=== PATIENT | female | born 1955 | race Caucasian/White ===

== ENCOUNTER 2022-07-02 15:11 | Inpatient (IN) ==
[2022-07-02] MEDS ORDERED: SODIUM CHLORIDE 0.9% 1000ML 500 ML IV ONE (15:43)
[2022-07-02 16:45] LABS: Basophils # (auto) 0.04 K/uL (0-0.2); Basophils % (auto) 0.4 %; Eosinophils # (auto) 0.04 K/uL (0-0.50); Eosinophils % (auto) 0.4 %; Hematocrit (blood only) 39.7 % (34.1-44.9); Hemoglobin 14.2 g/dl (12.0-16.0); Immature Granulocytes # (auto) 0.03 K/uL (0.00-0.02); Immature Granulocytes % (auto) 0.3 %; Lymphocytes # (auto) 1.83 K/uL (1.2-3.4); Lymphocytes % (auto) 17.1 %; Mean Corpuscular Hemoglobin 31.8 pg (25.0-34.0); Mean Corpuscular Hgb Conc 35.8 g/dL (32.0-36.0); Mean Platelet Volume 10.3 fL (9.4-12.3); Monocytes # (auto) 1.01 K/uL (0.24-0.82); Monocytes % (auto) 9.4 %; Neutrophils # (auto) 7.75 K/uL (1.4-6.5); Neutrophils % (auto) 72.4 %; Platelet Count 227 K/uL (130-400); RDW Coefficient of Variation 12.2 % (11.5-14.5); RDW Standard Deviation 39.9 fL (36.4-46.3); Red Blood Count 4.46 M/uL (3.93-5.22)
--- NOTE | 2022-07-02 16:47 | Emergency Department Note ---
History of Present Illness General Chief complaint: Diarrhea Stated complaint: DIARRHEA,VOMITING,ABD PAIN Time Seen by Provider: 07/02/22 15:37 History of Present Illness Provider Complaint: + nausea, + vomiting and + diarrhea Onset (ago): day(s) 4 Description of Vomiting: no bilious, no bloody or no coffee grounds Description of Diarrhea: no mucousy, no tarry, no blood-streaked or no bloody (bright red) Associated Abdominal Pain: Yes Location of pain: + diffuse Severity: moderate Maximum Pain Intensity: 5 Current Pain Intensity: 5 Quality: + aching Pain Consistency: + intermittent Relieved By: + none Exacerbated By: + none Context: + recent surgery/procedure (Colonoscopy on Sunday); no recent antibiotic use, no alcohol abuse, no trauma, no smoking or no marijuana use Associated symptoms: + anxiety (2Patient states she has been under a great deal of stress her sister having dementia and getting to arguments with caregivers within the family about this.); no chest pain, no cough, no fever/chills, no headaches, no dysuria, no shortness of breath, no numbness or no palpitation Home Medications Medication Instructions Recorded Confirmed Type amlodipine 5 mg tablet 5 mg PO DAILY 07/02/22 07/02/22 History aspirin 81 mg tablet,delayed 81 mg PO DAILY 07/02/22 07/02/22 History release cholecalciferol (vitamin D3) 50 50 mcg PO DAILY 07/02/22 07/02/22 History mcg (2,000 unit) tablet (Vitamin D3) indapamide 2.5 mg tablet 2.5 mg PO DAILY 07/02/22 07/02/22 History losartan 100 mg tablet 100 mg PO DAILY 07/02/22 07/02/22 History metformin 500 mg tablet,extended 1,000 mg PO BID 07/02/22 07/02/22 History release 24 hr pantoprazole 40 mg tablet,delayed 40 mg PO DAILYBB 07/02/22 07/02/22 History release rosuvastatin 20 mg tablet 20 mg PO HS 07/02/22 07/02/22 History solifenacin 10 mg tablet 10 mg PO QAM 07/02/22 07/02/22 History Allergies Allergy/AdvReac Type Severity Reaction Status Date / Time lisinopril Allergy Mild VOMITING, Unverified 07/02/22 20:56 COUGH oxycodone Allergy Mild VOMITING Unverified 07/25/10 21:26 atorvastatin [From Lipitor] AdvReac Unknown leg cramps Verified 07/02/22 20:56 olmesartan [From Benicar] AdvReac Unknown Diarrhea Verified 07/02/22 20:56 Past Med/Surg History Medical History Diabetes HLD (hyperlipidemia) HTN (hypertension) No pertinent family history Surgical History Hx of tonsillectomy Social History Smoking Status: Former smoker Preferred Language: Malian Feels Safe at Home: Yes Physical Exam Vital Signs: Vital Signs - 24 hr 07/02/22 15:26 07/02/22 16:19 07/02/22 17:30 Temperature 36.5 C Temperature Source Temporal Artery Sc an Pulse Rate 78 Pulse Rate [Finger ] 66 Pulse Rhythm Regular Pulse Rhythm [Fing er] Pulse Strength Normal Pulse Strength [Fi nger] Respiratory Rate 20 20 Respiratory Effort / Characteristics Non-Labored Sponta neous Non-Labored Sponta neous Respiratory Depth Normal Normal Respiratory Patter n Regular Regular Blood Pressure 148/88 H Blood Pressure [Ri ght Arm] 91/52 L Blood Pressure Darling n 108 Blood Pressure Darling n [Right Arm] 65 Blood Pressure Pos ition Sitting Blood Pressure Pos ition [Right Arm] Sitting Pulse Oximetry 97 99 Oxygen Delivery Me thod Room Air Room Air Room Air Sepsis Recent Feve r Within 48 Hours No Sepsis New/Unexpla ined Change in Men norris Status No Sepsis Action Take n by Nursing No Action Required 07/02/22 19:11 07/02/22 21:00 Temperature 36.7 C Temperature Source Oral Pulse Rate Pulse Rate [Finger ] 73 66 Pulse Rhythm Pulse Rhythm [Fing er] Regular Regular Pulse Strength Pulse Strength [Fi nger] Normal Normal Respiratory Rate 16 18 Respiratory Effort / Characteristics Non-Labored Sponta neous Non-Labored Sponta neous Respiratory Depth Normal Normal Respiratory Patter n Blood Pressure Blood Pressure [Ri ght Arm] 134/78 134/84 Blood Pressure Darling n Blood Pressure Darling n [Right Arm] 96 100 Blood Pressure Pos ition Blood Pressure Pos ition [Right Arm] Pulse Oximetry 98 97 Oxygen Delivery Me thod Room Air Room Air Sepsis Recent Feve r Within 48 Hours Sepsis New/Unexpla ined Change in Men norris Status Sepsis Action Take n by Nursing Physical Exam: Physical Exam HENT: Exam performed. -Head: Normocephalic and atraumatic. -Right Ear: External ear normal. No mastoid tenderness. -Left Ear: External ear normal. No mastoid tenderness. -Mouth/Throat: The oropharynx is clear and moist. No trismus in the jaw. No dental abscesses or uvula swelling. No oropharyngeal exudate or tonsillar abscesses. EYES: Conjunctivae and EOM are normal. Pupils are equal, round, and reactive to light. Right eye exhibits no discharge. Left eye exhibits no discharge. No scleral icterus. NECK: Normal range of motion. Neck supple. No JVD present. No spinous process tenderness present. No carotid bruit present. No rigidity. No tracheal deviation and normal range of motion present. No Brudzinski's sign and no Kernig's sign noted. CV: Normal rate, regular rhythm, normal heart sounds and intact distal pulses. There is no peripheral edema. Palpable radial pulses bue. PULM/CHEST: Effort normal and breath sounds normal. No respiratory distress. No stridor. She has no wheezes. She has no rales. -Chest Wall: She exhibits no tenderness. ABD: The abdomen is soft. Bowel sounds are normal. She has no distension. No mass is present. There is no tenderness. There is no rebound, no guarding, no Reynolds's sign and no tenderness at McBurney's point. Rovsig negative MUSC/SKEL: Normal range of motion. There is no peripheral edema, tenderness or deformity. LYMPH: No cervical adenopathy. NEURO: She is alert and oriented to person, place, and time. She has normal strength. No cranial nerve deficit or sensory deficit. Coordination and gait normal. GCS eye subscore is 4. GCS verbal subscore is 5. GCS motor subscore is 6. Cerebellar tests wnl. SKIN: Skin is warm and dry. She is not diaphoretic. PSYCH: Patient appears very anxious appearing tearing up when talking about her sister. Patient denies any suicidal or homicidal ideation. Course Course 153: The patient was evaluated in room B12. A complete history and physical exam was performed Cardiac monitoring: An order was placed for continuous cardiac monitoring. The monitor shows a rate of 80 with sinus rhythm 1645: Farrukh architect manager was able to access the patient's records in the [facility] EMR online. The patient had stool studies done on May 30 which were negative for C. difficile Giardia and Cryptosporidium. The patient had an ultrasound done on June 01 which showed a single intraluminal calculus in the gallbladder approximately 2.9 cm in diameter which is unchanged from March 2015. There is no ultrasound evidence of acute cholecystitis. No extrahepatic biliary dilatation with common duct measuring 7 mm. The patient had a colonoscopy done [address] Garcia which showed two 16mm polyps in the descending colon which were removed and was otherwise negative. 1699: Vital signs stable. Patient's labs show creatinine of 3.76.The labs from May 23 [facility] and the patient had a creatinine of 0.9. Given this CT of the abdomen was ordered to rule out any obstruction. CT of the abdomen pelvis showed no kidney stones but did show a possibly elevated diameter of the patient's appendix. The patient is still having pain in her right side. We will obtain CT of the abdomen pelvis with oral contrast. 2115: Vital signs stable. CT of the abdomen and pelvis does not show appendicitis. Patient be admitted to the [facility] hospitalist team Dr. Pugh for MARYLU. Administered Medications Sodium Chloride (Nss 1000ml) 1,000 mls @ 125 mls/hr IV .Q8H SANKET Stop: 08/01/22 17:59 Last Admin: 07/02/22 18:03 Dose: 125 mls/hr Documented By: ROBERTA Discontinued Medications Sodium Chloride (Nss 1000ml) 500 mls @ 999 mls/hr IV .Q31M ONE Stop: 07/02/22 16:13 Last Infusion: 07/02/22 17:42 Dose: 0 mls/hr Documented By: Admin: 07/02/22 16:30 Dose: 999 mls/hr Documented By: ROBERTA Medical Decision Making Laboratory Data Result diagrams: 07/02/22 16:35 07/02/22 16:35 Lab Results 07/02/22 07/02/22 07/02/22 Range/Units 16:35 16:35 17:49 WBC 10.70 (4.8-10.8) K/ul RBC 4.46 (3.93-5.22) M/uL Hgb 14.2 (12.0-16.0) g/dl Hct 39.7 (34.1-44.9) % MCV 89.0 (80.0-100.0) fL MCH 31.8 (25.0-34.0) pg MCHC 35.8 (32.0-36.0) g/dL RDW Std Deviation 39.9 (36.4-46.3) fL RDW Coeff of Misael 12.2 (11.5-14.5) % Plt Count 227 (130-400) K/uL MPV 10.3 (9.4-12.3) fL Immature Gran % (Auto) 0.3 % Neut % (Auto) 72.4 % Lymph % (Auto) 17.1 % [place] % (Auto) 9.4 % Eos % (Auto) 0.4 % Baso % (Auto) 0.4 % Neut # (Auto) 7.75 H (1.4-6.5) K/uL Lymph # (Auto) 1.83 (1.2-3.4) K/uL [place] # (Auto) 1.01 H (0.24-0.82) K/uL Eos # (Auto) 0.04 (0-0.50) K/uL Baso # (Auto) 0.04 (0-0.2) K/uL Immature Gran # (Auto) 0.03 H (0.00-0.02) K/uL Sodium 135 L (136-145) mmol/L Potassium 3.3 L (3.5-5.1) mmol/L Chloride 98 (98-107) mmol/L Carbon Dioxide 24 (21-32) mmol/L Anion Gap 13 H (3-11) BUN 34 H (6-23) mg/dl Creatinine 3.76 H (0.6-1.2) mg/dl Est Cr Clr Drug Dosing 13.9 ml/min Est GFR ( Amer) 13.6 ml/min Est GFR (Non-Af Amer) 11.7 ml/min BUN/Creatinine Ratio 9.0 L (10-20) Glucose 102 H (70-99(Fasting)) mg/dl Calcium 9.6 (8.5-10.1) mg/dl Total Bilirubin 2.2 H (0.2-1.0) mg/dl Direct Bilirubin 0.2 (0-0.2) mg/dl AST 19 (13-39) U/L ALT 29 (7-52) U/L Alkaline Phosphatase 45 (34-104) U/L Total Protein 7.4 (6.0-8.3) gm/dl Albumin 4.1 (3.4-5.0) gm/dl Lipase 8 L (11-82) U/L Urine Color Yellow Urine Appearance Clear (Clear) Urine pH 5.0 (4.5-7.5) Ur Specific [place] 1.005 (1.000-1.030) Urine Protein Negative (Negative) Urine Glucose (UA) Negative (Negative) Urine Ketones Negative (Negative) Urine Blood 1+ H (Negative) Urine Nitrite Negative (Negative) Urine Bilirubin Negative (Negative) Urine Urobilinogen Negative (Negative) Ur Leukocyte Esterase Negative (Negative) Urine WBC (Auto) 1-5 (0-5) /hpf Urine RBC (Auto) 0-4 (0-4) /hpf U Hyaline Cast (Auto) 1-5 (0-5) /lpf U Epithel Cells (Auto) 20-30 H (0-5) /lpf Urine Bacteria (Auto) Negative (Negative) SARS-CoV-2, RNA, NAAT (NEGATIVE) 07/02/22 Range/Units 18:10 WBC (4.8-10.8) K/ul RBC (3.93-5.22) M/uL Hgb (12.0-16.0) g/dl Hct (34.1-44.9) % MCV (80.0-100.0) fL MCH (25.0-34.0) pg MCHC (32.0-36.0) g/dL RDW Std Deviation (36.4-46.3) fL RDW Coeff of Misael (11.5-14.5) % Plt Count (130-400) K/uL MPV (9.4-12.3) fL Immature Gran % (Auto) % Neut % (Auto) % Lymph % (Auto) % [place] % (Auto) % Eos % (Auto) % Baso % (Auto) % Neut # (Auto) (1.4-6.5) K/uL Lymph # (Auto) (1.2-3.4) K/uL [place] # (Auto) (0.24-0.82) K/uL Eos # (Auto) (0-0.50) K/uL Baso # (Auto) (0-0.2) K/uL Immature Gran # (Auto) (0.00-0.02) K/uL Sodium (136-145) mmol/L Potassium (3.5-5.1) mmol/L Chloride (98-107) mmol/L Carbon Dioxide (21-32) mmol/L Anion Gap (3-11) BUN (6-23) mg/dl Creatinine (0.6-1.2) mg/dl Est Cr Clr Drug Dosing ml/min Est GFR ( Amer) ml/min Est GFR (Non-Af Amer) ml/min BUN/Creatinine Ratio (10-20) Glucose (70-99(Fasting)) mg/dl Calcium (8.5-10.1) mg/dl Total Bilirubin (0.2-1.0) mg/dl Direct Bilirubin (0-0.2) mg/dl AST (13-39) U/L ALT (7-52) U/L Alkaline Phosphatase (34-104) U/L Total Protein (6.0-8.3) gm/dl Albumin (3.4-5.0) gm/dl Lipase (11-82) U/L Urine Color Urine Appearance (Clear) Urine pH (4.5-7.5) Ur Specific [place] (1.000-1.030) Urine Protein (Negative) Urine Glucose (UA) (Negative) Urine Ketones (Negative) Urine Blood (Negative) Urine Nitrite (Negative) Urine Bilirubin (Negative) Urine Urobilinogen (Negative) Ur Leukocyte Esterase (Negative) Urine WBC (Auto) (0-5) /hpf Urine RBC (Auto) (0-4) /hpf U Hyaline Cast (Auto) (0-5) /lpf U Epithel Cells (Auto) (0-5) /lpf Urine Bacteria (Auto) (Negative) SARS-CoV-2, RNA, NAAT NEGATIVE (NEGATIVE) Imaging Data Radiologist's Impression: Abdomen/Pelvis CT 07/02/22 17:09 CT OF THE ABDOMEN AND PELVIS WITHOUT CONTRAST CLINICAL HISTORY: Abdominal pain. Acute kidney injury. COMPARISON STUDY: No previous studies for comparison. TECHNIQUE: Axial images of the abdomen and pelvis were obtained without IV contrast. Images were reviewed in the axial, sagittal, and coronal planes. Automated exposure control was utilized for the study. A dose lowering techniq ue was utilized adhering to the principles of ALARA. FINDINGS: Lung bases are unremarkable. No pneumatosis, free air or portal venous gas is present. No renal, ureteral or bladder calculi are present. There is minimal symmetric bilateral perinephric stranding. There is no hydronephrosis. A few 4.4 cm water attenuation lesion within the midpole of the left kidney favors a cyst. An additional 1.3 cm water attenuation lesion is also suboptimally assessed but likely reflects a cyst. Gallstone within the gallbladder is noted. No evidence for acute cholecystitis. Unenhanced images of the liver, spleen, adrenal glands and pancreas are unremarkable. There is no evidence for a bowel obstruction. The appendix is slightly dilated, measuring 7 mm in caliber. There is no definite periappendiceal infiltration. Suspected right fundal fibroid measuring approximately 2 cm. There is no ascites. There is no lymphadenopathy. No acute fracture or suspicious lesion within visualized skeletal structures. IMPRESSION: 1. No urinary calculi or hydronephrosis. Minimal symmetric bilateral perinephric stranding. 2. Slightly dilated appendix. These findings do not strongly suggest acute appendicitis however correlation with right lower quadrant pain is recommended. If progressive pain, short-term follow-up CT is recommended. 3. Cholelithiasis. No evidence for acute cholecystitis. 4. No bowel obstruction. ACT 112: Negative or not required by law. Electronically signed by: Jose David Celestin M.D. 07/02/2022 5:46 PM PreliminaryFindingsOnly See Final Report For Complete Findings CT ABDOMEN & PELVIS With Contrast: The appendix is normal. Bowel loops are nondilated. No pneumoperitoneum, free fluid, or acute inflammatorychanges are seen involving the bowel. There is a 2.6 cmcalcified gallstoneswithin a nondilated gallbladder. No surrounding inflammation is identified. No biliaryduct dilation or choledocholithiasis is seen. There is a 4.6 cmsimple cyst in the upper pole the left kidney. No hydronephrosis or ureterolithiasis is seen. The liver, pancreas, spleen, and adrenal glands are unremarkable. The aorta is mildlycalcified but nondilated. The uterus, adnexa, urinarybladder appear within normal limits. Mild degenerative changes throughout the lumbar spine. No acute fracture or subluxation is seen. Radiologist: Harley Marks MD Study ready at 20:22 and initial results transmitted at 21:00 [facility] Narrative 1537: The patient was evaluated in room B12. A complete history and physical exam was performed Cardiac monitoring: An order was placed for continuous cardiac monitoring. The monitor shows a rate of 80 with sinus rhythm 1645: Farrukh architect manager was able to access the patient's records in the [facility] EMR online. The patient had stool studies done on May 30 which were negative for C. difficile Giardia and Cryptosporidium. The patient had an ultrasound done on June 01 which showed a single intraluminal calculus in the gallbladder approximately 2.9 cm in diameter which is unchanged from March 2015. There is no ultrasound evidence of acute cholecystitis. No extrahepatic biliary dilatation with common duct measuring 7 mm. The patient had a colonoscopy done [address] Garcia which showed two 16mm polyps in the descending colon which were removed and was otherwise negative. 1699: Vital signs stable. Patient's labs show creatinine of 3.76.The labs from May 23 were reviewed in the [facility] system and the patient had a creatinine of 0.9. Given this CT of the abdomen was ordered to rule out any obstruction. CT of the abdomen pelvis showed no kidney stones but did show a possibly elevated diameter of the patient's appendix. The patient is still having pain in her right side. We will obtain CT of the abdomen pelvis with oral contrast. 2115: Vital signs stable. CT of the abdomen and pelvis does not show appendicitis. Patient be admitted to the [facility] hospitalist team Dr. Pugh for MARYLU. Impression & Plan MARYLU (acute kidney injury) Discharge Plan Visit Data Chief Complaint: Diarrhea Stated Complaint: DIARRHEA,VOMITING,ABD PAIN ED Provider: Dinesh Charles Discharge Problem: MARYLU (acute kidney injury) Patient Disposition: Admitted As Inpatient Forms Stand Alone Forms: [facility] Prescriptions Prescriptions: No Action amlodipine 5 mg tablet 5 mg PO DAILY pantoprazole 40 mg tablet,delayed release (DR/EC) 40 mg PO DAILYBB losartan 100 mg tablet 100 mg PO DAILY metformin 500 mg tablet extended release 24 hr 1,000 mg PO BID rosuvastatin 20 mg tablet 20 mg PO HS solifenacin 10 mg tablet 10 mg PO QAM indapamide 2.5 mg tablet 2.5 mg PO DAILY aspirin [Aspirin Low-Strength] 81 mg Tablet,Delayed Release (Dr/Ec) 81 mg PO DAILY cholecalciferol (vitamin D3) [Vitamin D3] 50 mcg (2,000 unit) Tablet 50 mcg PO DAILY Referrals Referrals: Doroteo Hammond MD [Primary Care Provider] -
[2022-07-02 17:04] LABS: Albumin Level 4.1 gm/dl (3.4-5.0); Bilirubin Direct 0.2 mg/dl (0-0.2); Bilirubin,Total 2.2 mg/dl (0.2-1.0); Calcium 9.6 mg/dl (8.5-10.1); Creatinine Clr Calc Pharmacy 13.9 ml/min; Est GFR (African American) 13.6 ml/min; Est GFR (Non-African American) 11.7 ml/min; Potassium 3.3 mmol/L (3.5-5.1); Total Protein 7.4 gm/dl (6.0-8.3)
--- NOTE | 2022-07-02 17:48 | CT Scan Report ---
CT OF THE ABDOMEN AND PELVIS WITHOUT CONTRAST CLINICAL HISTORY: Abdominal pain. Acute kidney injury. COMPARISON STUDY: No previous studies for comparison. TECHNIQUE: Axial images of the abdomen and pelvis were obtained without IV contrast. Images were revi ewed in the axial, sagittal, and coronal planes. Automated exposure control was utilized for the emmy dy. A dose lowering technique was utilized adhering to the principles of ALARA. FINDINGS: Lung bases are unremarkable. No pneumatosis, free air or portal venous gas is present. No r enal, ureteral or bladder calculi are present. There is minimal symmetric bilateral perinephric stran ding. There is no hydronephrosis. A few 4.4 cm water attenuation lesion within the midpole of the lef t kidney favors a cyst. An additional 1.3 cm water attenuation lesion is also suboptimally assessed b ut likely reflects a cyst. Gallstone within the gallbladder is noted. No evidence for acute cholecyst itis. Unenhanced images of the liver, spleen, adrenal glands and pancreas are unremarkable. There is no evidence for a bowel obstruction. The appendix is slightly dilated, measuring 7 mm in caliber. The re is no definite periappendiceal infiltration. Suspected right fundal fibroid measuring approximatel y 2 cm. There is no ascites. There is no lymphadenopathy. No acute fracture or suspicious lesion with in visualized skeletal structures. IMPRESSION: 1. No urinary calculi or hydronephrosis. Minimal symmetric bilateral perinephric stranding. 2. Slightly dilated appendix. These findings do not strongly suggest acute appendicitis however corre lation with right lower quadrant pain is recommended. If progressive pain, short-term follow-up CT is recommended. 3. Cholelithiasis. No evidence for acute cholecystitis. 4. No bowel obstruction. ACT 112: Negative or not required by law. Electronically signed by: Jose David Celestin M.D. 07/02/2022 5:46 PM
[2022-07-02] MEDS ORDERED: SODIUM CHLORIDE 0.9% 1000ML 1,000 ML IV SCH (18:00)
[2022-07-02 18:07] LABS: Appearance Urine Clear (Clear); Bacteria Urine Automated Negative (Negative); Bilirubin Urine Negative (Negative); Blood Urine 1+ (Negative); Color Urine Yellow; Epithelial Cell Urine Auto 20-30 /lpf (0-5); Glucose Urine UA Negative (Negative); Ketones Urine Negative (Negative); Leukocyte Esterase Urine Negative (Negative); Nitrite Urine Negative (Negative); Protein Urine Negative (Negative); RBC Urine Automated 0-4 /hpf (0-4); Specific Gravity Urine 1.005 (1.000-1.030); Urobilinogen Urine Negative (Negative)
[2022-07-02] MEDS ORDERED: POTASSIUM CHLORIDE CRTAB 20 MEQ TABCR PO STA (21:28)
--- NOTE | 2022-07-02 21:30 | History & Physical Report ---
Date of Service July 02, 2022 Assessment & Plan (1) MARYLU (acute kidney injury): Plan: Secondary to acute GI upset Home medications contributory hypertension, BP on the lower side at some point at the ER hyperlipidemia on statin Rx GERD stable on regimen DM2 on oral medications, well-controlled as of recent hemoglobin A1c of 6.07 May 2022 primary hyperparathyroidism status post surgery. Hypokalemia secondary to emesis, home diuretic Rx GMF Clear liquids for now Monitor creatinine response to IVF Nephrology consult if without improvement Appropriate to hold home losartan and diuretic until creatinine back to baseline Replace electrolytes Basal bolus insulin, ISS BG goal 1 10-1 40 DVT prophylaxis with Heparin subcu Full code Text document was generated using [email or web address] voice recognition software. It may contain grammatical or spelling errors. Kindly contact undersigned for clarification of any documentation item in question. History of Present Illness Chief Complaint: Abdominal pain, nausea, vomiting Primary Care Provider: Doroteo Hammond MD History obtained from patient and records. Medical history significant for hypertension, hyperlipidemia, GERD, DM2 on oral medications, primary hyperparathyroidism status post surgery. This afternoon, patient was cooking some be when she suddenly felt sick after smelling the meat. Subsequent epigastric and right-sided abdominal pain with nausea and bilious emesis. No fever, no chills, no chest pain, no SOB. Usual diarrhea symptoms not bothering her today. Patient brought by to the ER. Medical History as above Surgical History : Parathyroidectomy, finger surgery, BTL, tonsillectomy Family History : DM, heart disease, stroke Personal/Social history : Non-smoker, occasional EtOH intake, retired from factory work/grocery employment Allergies Allergy/AdvReac Type Severity Reaction Status Date / Time lisinopril Allergy Mild VOMITING, Unverified 07/02/22 20:56 COUGH oxycodone Allergy Mild VOMITING Unverified 07/25/10 21:26 atorvastatin [From Lipitor] AdvReac Unknown leg cramps Verified 07/02/22 20:56 olmesartan [From Benicar] AdvReac Unknown Diarrhea Verified 07/02/22 20:56 Home Medications Medication Instructions Recorded Confirmed Type amlodipine 5 mg tablet 5 mg PO DAILY 07/02/22 07/02/22 History aspirin 81 mg tablet,delayed 81 mg PO DAILY 07/02/22 07/02/22 History release cholecalciferol (vitamin D3) 50 50 mcg PO DAILY 07/02/22 07/02/22 History mcg (2,000 unit) tablet (Vitamin D3) indapamide 2.5 mg tablet 2.5 mg PO DAILY 07/02/22 07/02/22 History losartan 100 mg tablet 100 mg PO DAILY 07/02/22 07/02/22 History metformin 500 mg tablet,extended 1,000 mg PO BID 07/02/22 07/02/22 History release 24 hr pantoprazole 40 mg tablet,delayed 40 mg PO DAILYBB 07/02/22 07/02/22 History release rosuvastatin 20 mg tablet 20 mg PO HS 07/02/22 07/02/22 History solifenacin 10 mg tablet 10 mg PO QAM 07/02/22 07/02/22 History Past Med/Surg History Medical History Diabetes HLD (hyperlipidemia) HTN (hypertension) No pertinent family history Surgical History Hx of tonsillectomy Social History Smoking Status: Former smoker Preferred Language: Venezuelan Feels Safe at Home: Yes Review of Systems Review of Systems: As per HPI, all other systems reviewed and negative Physical Exam Physical Exam: GENERAL: Comfortable, obese, pleasant, no respiratory distress SKIN: Normal color, warm HEENT: Bespectacled, [place] palpebral conjunctivae, no ptosis, dry buccal mucosa NECK : Supple, short neck, no tenderness CHEST : CTA, no tenderness HEART : RRR, no obvious murmurs ABDOMEN: Some distention, epigastric tenderness EXTREMITIES : Minimal LE swelling, no LE tenderness, no other conspicuous deformities noted NEUROLOGIC : Coherent, no facial asymmetry, no other gross focality Results & Data Results & Data ([facility]) Vital Signs (Past 12 Hours) Vital Signs Temp Pulse Pulse Resp BP BP Pulse Ox 07/02/22 21:00 66 18 134/84 97 07/02/22 19:11 36.7 C 73 16 134/78 98 07/02/22 17:30 66 20 91/52 L 99 07/02/22 16:19 07/02/22 15:26 36.5 C 78 20 148/88 H 97 O2 Del Method 07/02/22 21:00 Room Air 07/02/22 19:11 Room Air 07/02/22 17:30 Room Air 07/02/22 16:19 Room Air 07/02/22 15:26 Room Air Laboratory Results Laboratory Results WBC 10.70 K/ul (4.8-10.8) 07/02/22 16:35 RBC 4.46 M/uL (3.93-5.22) 07/02/22 16:35 Hgb 14.2 g/dl (12.0-16.0) 07/02/22 16:35 Hct 39.7 % (34.1-44.9) 07/02/22 16:35 MCV 89.0 fL (80.0-100.0) 07/02/22 16:35 MCH 31.8 pg (25.0-34.0) 07/02/22 16:35 MCHC 35.8 g/dL (32.0-36.0) 07/02/22 16:35 RDW Std Deviation 39.9 fL (36.4-46.3) 07/02/22 16:35 RDW Coeff of Misael 12.2 % (11.5-14.5) 07/02/22 16:35 Plt Count 227 K/uL (130-400) 07/02/22 16:35 MPV 10.3 fL (9.4-12.3) 07/02/22 16:35 Immature Gran % (Auto) 0.3 % 07/02/22 16:35 Neut % (Auto) 72.4 % 07/02/22 16:35 Lymph % (Auto) 17.1 % 07/02/22 16:35 [place] % (Auto) 9.4 % 07/02/22 16:35 Eos % (Auto) 0.4 % 07/02/22 16:35 Baso % (Auto) 0.4 % 07/02/22 16:35 Neut # (Auto) 7.75 K/uL (1.4-6.5) H 07/02/22 16:35 Lymph # (Auto) 1.83 K/uL (1.2-3.4) 07/02/22 16:35 [place] # (Auto) 1.01 K/uL (0.24-0.82) H 07/02/22 16:35 Eos # (Auto) 0.04 K/uL (0-0.50) 07/02/22 16:35 Baso # (Auto) 0.04 K/uL (0-0.2) 07/02/22 16:35 Immature Gran # (Auto) 0.03 K/uL (0.00-0.02) H 07/02/22 16:35 Sodium 135 mmol/L (136-145) L 07/02/22 16:35 Potassium 3.3 mmol/L (3.5-5.1) L 07/02/22 16:35 Chloride 98 mmol/L (98-107) 07/02/22 16:35 Carbon Dioxide 24 mmol/L (21-32) 07/02/22 16:35 Anion Gap 13 (3-11) H 07/02/22 16:35 BUN 34 mg/dl (6-23) H 07/02/22 16:35 Creatinine 3.76 mg/dl (0.6-1.2) H 07/02/22 16:35 Est Cr Clr Drug Dosing 13.9 ml/min 07/02/22 16:35 Est GFR ( Amer) 13.6 ml/min 07/02/22 16:35 Est GFR (Non-Af Amer) 11.7 ml/min 07/02/22 16:35 BUN/Creatinine Ratio 9.0 (10-20) L 07/02/22 16:35 Glucose 102 mg/dl (70-99(Fasting)) H 07/02/22 16:35 Calcium 9.6 mg/dl (8.5-10.1) 07/02/22 16:35 Total Bilirubin 2.2 mg/dl (0.2-1.0) H 07/02/22 16:35 Direct Bilirubin 0.2 mg/dl (0-0.2) 07/02/22 16:35 AST 19 U/L (13-39) 07/02/22 16:35 ALT 29 U/L (7-52) 07/02/22 16:35 Alkaline Phosphatase 45 U/L (34-104) 07/02/22 16:35 Total Protein 7.4 gm/dl (6.0-8.3) 07/02/22 16:35 Albumin 4.1 gm/dl (3.4-5.0) 07/02/22 16:35 Lipase 8 U/L (11-82) L 07/02/22 16:35 Urine Color Yellow 07/02/22 17:49 Urine Appearance Clear (Clear) 07/02/22 17:49 Urine pH 5.0 (4.5-7.5) 07/02/22 17:49 Ur Specific [place] 1.005 (1.000-1.030) 07/02/22 17:49 Urine Protein Negative (Negative) 07/02/22 17:49 Urine Glucose (UA) Negative (Negative) 07/02/22 17:49 Urine Ketones Negative (Negative) 07/02/22 17:49 Urine Blood 1+ (Negative) H 07/02/22 17:49 Urine Nitrite Negative (Negative) 07/02/22 17:49 Urine Bilirubin Negative (Negative) 07/02/22 17:49 Urine Urobilinogen Negative (Negative) 07/02/22 17:49 Ur Leukocyte Esterase Negative (Negative) 07/02/22 17:49 Urine WBC (Auto) 1-5 /hpf (0-5) 07/02/22 17:49 Urine RBC (Auto) 0-4 /hpf (0-4) 07/02/22 17:49 U Hyaline Cast (Auto) 1-5 /lpf (0-5) 07/02/22 17:49 U Epithel Cells (Auto) 20-30 /lpf (0-5) H 07/02/22 17:49 Urine Bacteria (Auto) Negative (Negative) 07/02/22 17:49 SARS-CoV-2, RNA, NAAT NEGATIVE (NEGATIVE) 07/02/22 18:[address] abdomen pelvis: 1. No urinary calculi or hydronephrosis. Minimal symmetric bilateral perinephric stranding. 2. Slightly dilated appendix. These findings do not strongly suggest acute appendicitis however correlation with right lower quadrant pain is recommended. If progressive pain, short-term follow-up CT is recommended. 3. Cholelithiasis. No evidence for acute cholecystitis. 4. No bowel obstruction. CT abdomen and pelvis with oral contrast initial read: The appendix is normal. Bowel loops are nondilated. No pneumoperitoneum, free fluid, or acute inflammatorychanges are seen involving the bowel. There is a 2.6 cmcalcified gallstoneswithin a nondilated gallbladder. No surrounding inflammation is identified. No biliaryduct dilation or choledocholithiasis is seen. There is a 4.6 cmsimple cyst in the upper pole the left kidney. No hydronephrosis or ureterolithiasis is seen. The liver, pancreas, spleen, and adrenal glands are unremarkable. The aorta is mildlycalcified but nondilated. The uterus, adnexa, urinarybladder appear within normal limits. Mild degenerative changes throughout the lumbar spine. No acute fracture or subluxation is seen Chest x-ray as per my interpretation cardiomegaly, elevated right hemidiaphragm EKG as per my interpretation : Rate 65, NSR, LAD, LAFB, T wave flattening inferior leads
[2022-07-02] MEDS ORDERED: LACTATED RINGER'S 1,000 ML IV STA (22:27)
[2022-07-02 22:52] LABS: Base Excess VBG 0.8 mEq/L; HCO3 VBG 25 mmol/L; Oxygen Saturation VBG < 60.0 %; PCO2 VBG 39 mmHg (38-50); PO2 VBG 29 mmHg; pH VBG 7.42 (7.36-7.41)
[2022-07-02 23:11] LABS: BUN Creatinine Ratio 9.3 (10-20); Calcium 8.7 mg/dl (8.5-10.1); Creatinine Clr Calc Pharmacy 15.7 ml/min; Est GFR (African American) 15.7 ml/min; Est GFR (Non-African American) 13.6 ml/min; Potassium 3.6 mmol/L (3.5-5.1)
[2022-07-02] MEDS ORDERED: PROMETHAZINE HCL 12.5 MG in SODIUM CHLORIDE 0.9% 50 ML IV PRN (23:42)
[2022-07-02] MEDS ORDERED: ACETAMINOPHEN 325 MG TAB PO PRN (23:42)
[2022-07-02] MEDS ORDERED: CARBOHYDRATES FOR HYPOGLYCEMIA PO PRN (23:42)
[2022-07-02] MEDS ORDERED: GLUCAGON FOR INJ 1 MG VIAL SQ PRN (23:42)
[2022-07-02] MEDS ORDERED: traMADol HCL 50 MG TABLET PO PRN (23:42)
[2022-07-02] MEDS ORDERED: HYDROmorphone INJ 0.5 MG/0.5 ML SYR IV PRN (23:42)
[2022-07-02] MEDS ORDERED: DEXTROSE 50% 50 ML SYRINGE IV PRN (23:42)
[2022-07-02] MEDS ORDERED: GLUCOSE 40% GEL 15 GM TUBE PO PRN (23:42)
[2022-07-02] MEDS ORDERED: GLUCOSE 10 TAB/TUBE PO PRN (23:42)
[2022-07-03] MEDS: MAGNESIUM SULFATE / D5W 1 GM/100 ML BAG IV SCH ×2 (00:03→01:51)
[2022-07-03] MEDS: PANTOprazole 40 MG TAB PO SCH (05:46)
[2022-07-03] MEDS: HEPARIN SOD 5,000 UNIT/0.5 ML VIAL SQ SCH ×3 (05:50→20:14)
--- NOTE | 2022-07-03 06:45 | Electrocardiogram Report ---
Test Reason : Blood Pressure : / mmHG Vent. Rate : 066 BPM Atrial Rate : 066 BPM P-R Int : 192 ms QRS Dur : 090 ms QT Int : 424 ms P-R-T Axes : 051 -07 012 degrees QTc Int : 444 ms Normal sinus rhythm Normal ECG No previous ECGs available Confirmed by Fawad Montaño ([id number]) on 07/03/2022 6:45:11 AM Referred By: REFERRED SELF Confirmed By:Fawad Montaño
[2022-07-03 07:43] LABS: Basophils # (auto) 0.04 K/uL (0-0.2); Basophils % (auto) 0.5 %; Eosinophils # (auto) 0.08 K/uL (0-0.50); Hematocrit (blood only) 36.9 % (34.1-44.9); Immature Granulocytes # (auto) 0.02 K/uL (0.00-0.02); Immature Granulocytes % (auto) 0.2 %; Lymphocytes # (auto) 2.34 K/uL (1.2-3.4); Lymphocytes % (auto) 28.3 %; Mean Corpuscular Hemoglobin 31.4 pg (25.0-34.0); Mean Corpuscular Hgb Conc 35.2 g/dL (32.0-36.0); Mean Corpuscular Volume 89.1 fL (80.0-100.0); Mean Platelet Volume 10.8 fL (9.4-12.3); Monocytes # (auto) 0.83 K/uL (0.24-0.82); Neutrophils # (auto) 4.95 K/uL (1.4-6.5); Platelet Count 212 K/uL (130-400); RDW Coefficient of Variation 12.3 % (11.5-14.5); RDW Standard Deviation 40.6 fL (36.4-46.3); Red Blood Count 4.14 M/uL (3.93-5.22); White Blood Count 8.26 K/ul (4.8-10.8)
--- NOTE | 2022-07-03 07:56 | CT Scan Report ---
CT SCAN OF THE ABDOMEN AND PELVIS WITHOUT IV CONTRAST CLINICAL HISTORY: Right lower quadrant abdominal pain. Follow-up abnormal CT scan. COMPARISON STUDY: Abdominal CT dated 07/02/2022. TECHNIQUE: CT scan of the abdomen and pelvis is performed from the lung bases to the proximal femora. Images are reviewed in the axial, sagittal, and coronal planes. IV contrast was not administered for this examination. Note that the examination is suboptimal without IV contrast. Oral contrast was uti lized. A dose lowering technique was utilized adhering to the principles of ALARA. CT DOSE: 605.58 mGy.cm FINDINGS: Lung bases: The heart is normal in size and without pericardial effusion. The lung bases are clear. T here is a small hiatal hernia. Liver: The unenhanced liver is normal and size and contour. The liver demonstrates diminished attenua tion indicating steatosis. There is no intrahepatic biliary ductal dilatation. Gallbladder: There is a large calcified gallstone without CT evidence of acute cholecystitis. Spleen: Normal in size and attenuation. Pancreas: The unenhanced pancreas is grossly unremarkable. Adrenal glands: Unremarkable. Kidneys: The unenhanced kidneys are normal in size and without hydronephrosis. No renal calculi are i dentified. No ureteral stone is seen. A 4.3 cm cyst is noted on the left. Abdominal vasculature: The abdominal aorta is normal in course and caliber noting moderate to advance d atherosclerotic calcification. Bowel: There is no bowel obstruction. Enteric contrast reaches the left colon. The appendix is well- visualized and normal, containing enteric contrast. Peritoneum: There is no intraperitoneal free air or abdominal ascites. There is a small fat-containin g umbilical hernia. Lymphadenopathy: None. Pelvic viscera: The bladder, uterus, and adnexa are normal as visualized. Skeletal structures: The skeletal structures are osteopenic. There is mild lumbosacral spondylosis. N o lytic or blastic lesions are seen. IMPRESSION: 1. No acute infectious or inflammatory findings are identified in the abdomen or pelvis. 2. There is no CT evidence of acute appendicitis. 3. Cholelithiasis. 4. Hepatic steatosis. 5. Additional findings as above. ACT 112: Negative or not required by law. Electronically signed by: Abdelrahman Contreras M.D. 07/03/2022 7:55 AM
[2022-07-03 08:25] LABS: BUN Creatinine Ratio 9.4 (10-20); Est GFR (African American) 17.3 ml/min; Est GFR (Non-African American) 14.9 ml/min; Magnesium 2.1 mg/dl (1.7-2.4); Potassium 3.5 mmol/L (3.5-5.1)
[2022-07-03] MEDS: ASPIRIN 81 MG ECTAB PO SCH (08:36)
--- NOTE | 2022-07-03 08:47 | XRay Report ---
XR chest 1V portable HISTORY: renal failure COMPARISON: None. FINDINGS: The cardiac silhouette is borderline enlarged. No focal lung consolidations to suggest pneu monia. No evidence for pulmonary edema. No pleural effusions. No pneumothorax. IMPRESSION: Borderline cardiomegaly. Otherwise, no acute process within the chest. ACT 112: Negative or not required by law. Electronically signed by: Camilo Roa M.D. 07/03/2022 8:46 AM
[2022-07-03] MEDS: INSULIN ASPART PER UNIT SC SCH ×4 (08:50→21:20)
[2022-07-03] MEDS ORDERED: amLODIPine BESYLATE 5 MG TAB PO SCH (09:00)
[2022-07-03] MEDS: LACTATED RINGER'S 1,000 ML IV SCH ×2 (09:35→17:13)
[2022-07-03] MEDS: PSYLLIUM or GUAR GUM FIBER POWDER PACKET PO SCH (11:17)
[2022-07-03 11:30] LABS: Adenovirus F 40/41 PCR Not Detected (NotDetected); Astrovirus PCR Not Detected (NotDetected); Campylobacter PCR Not Detected (NotDetected); Clostridium diff Toxin A/B PCR Not Detected (NotDetected); Cryptosporidium PCR Not Detected (NotDetected); Cyclospora cayetanensis PCR Not Detected (NotDetected); Entamoeba histolytica PCR Not Detected (NotDetected); Enteroaggregative E.coli(EAEC) Not Detected (NotDetected); Enteropathogenic E.coli (EPEC) Not Detected (NotDetected); Enterotoxigenic E.coli (ETEC) Not Detected (NotDetected); Giardia lamblia PCR Not Detected (NotDetected); Norovirus GI/GII PCR Not Detected (NotDetected); Plesiomonas shigelloides PCR Not Detected (NotDetected); Rotavirus A PCR Not Detected (NotDetected); Salmonella PCR Not Detected (NotDetected); Sapovirus PCR Not Detected (NotDetected); Shiga-like Toxin E.coli (STEC) Not Detected (NotDetected); Shigella/Enteroinvasive E.coli Not Detected (NotDetected); Vibrio cholerae PCR Not Detected (NotDetected); Vibrio species PCR Not Detected (NotDetected); Yersinia enterocolitica PCR Not Detected (NotDetected)
[2022-07-03] MEDS ORDERED: LOPERAMIDE HCL 2 MG CAP PO PRN (11:40)
--- NOTE | 2022-07-03 11:56 | Hospitalist Progress Note ---
Date of Service July 03, 2022 Assessment & Plan (1) MARYLU (acute kidney injury): (2) Nausea vomiting and diarrhea: Plan MARYLU- likely prerenal from vomiting and diarrhea. - Baseline Cr 0.9, elevated to 3.76 on admission, improving with IVF - Continue IVF due to ongoing gi losses. Avoid nephrotoxics including losartan and diuretics, recheck Cr in am - Cr trend 3.76->3.34->3.08 - Consider nephro eval if Cr does not improve significantly N/V/D- possible viral gastroenteritis. N/V resolved. Still having diarrhea, however GI biofire negative, CT A/P with no acute abnormality - continue supportive management with IVF, antiemetics prn, fibers, imodium prn - Advance to full liquid diet- advance as tolerated - Had OP colonoscopy on Sunday and US abd a month ago as OP. - Consider GI evaluation if persistent symptoms Cholelithiasis- she does not have symptoms of cholecystitis however she is fixated that her GB might be the problem of all her issues and she wants her GB taken out. Recommended follow up with surgery as OP to discuss. GERD- on PPI DM-2- holding home oral antidiabetics. continue SSI. A1c 6.3 HTN- holding losartan and diuretics. Will increase norvasc to bid Primary hyperparathyroidism status post surgery DVT ppx- sc heparin Dispo- Pending improvement in renal function and improvement in diarrhea. Updated son over the phone and answered all questions Admission and Anticipated Discharge Date Admission Date: July 02, 2022 Subjective She had abdominal pain with diarrhea x3 this morning. States her symptoms ongoing since 2013 and unable to find the diagnosis despite multiple tests- she states she was told she had borderline IBS and borderline celiac disease- she just had her colonoscopy 3 days back on Sunday with removal of polyp- patho pending. She somehow thinks this might be her gall bladder issue however there was no evidence of cholecystitis clinically or radiologically. She had no more vomiting since ED presentation. Tolerating clears without issues. Physical Exam Physical Exam: General: Lying comfortably in bed, not in distress, on room air HEENT: EOMI, PERRL, MMM Chest: Clear breath sounds bilaterally, no wheezes or crackles CVS: Regular rate and rhythm, normal heart sounds, no murmur Abdomen: Soft, non tender, not distended, bowel sounds present Neuro: Awake, alert, oriented, conversing well, non focal Extremities: No edema Results & Data Results & Data ([facility]) Vital Signs (Past 12 Hours) Vital Signs Temp Pulse Resp BP Pulse Ox O2 Del Method 07/03/22 07:35 36.5 C 56 L 16 156/74 H 94 Room Air Laboratory Results Short CBC 07/02/22 07/03/22 Range/Units 16:35 07:23 WBC 10.70 8.26 (4.8-10.8) K/ul Hgb 14.2 13.0 (12.0-16.0) g/dl Hct 39.7 36.9 (34.1-44.9) % Plt Count 227 212 (130-400) K/uL BMP 07/02/22 07/02/22 07/03/22 16:35 22:43 07:23 Sodium 135 L 137 138 Potassium 3.3 L 3.6 3.5 Chloride 98 104 105 Carbon Dioxide 24 24 23 BUN 34 H 31 H 29 H Creatinine 3.76 H 3.34 H D 3.08 H Glucose 102 H 92 129 H Calcium 9.6 8.7 9.0 Cardiac Enzymes 07/02/22 Range/Units 22:43 Total Creatine Kinase 100 (26-192) U/L Liver Function 07/02/22 Range/Units 16:35 Total Bilirubin 2.2 H (0.2-1.0) mg/dl Direct Bilirubin 0.2 (0-0.2) mg/dl AST 19 (13-39) U/L ALT 29 (7-52) U/L Alkaline Phosphatase 45 (34-104) U/L Albumin 4.1 (3.4-5.0) gm/dl Urine 07/02/22 Range/Units 17:49 Urine Color Yellow Urine Appearance Clear (Clear) Urine pH 5.0 (4.5-7.5) Ur Specific [place] 1.005 (1.000-1.030) Urine Protein Negative (Negative) Urine Glucose (UA) Negative (Negative) Diagnostic Findings Abdomen/Pelvis CT 07/02/22 17:54 CT SCAN OF THE ABDOMEN AND PELVIS WITHOUT IV CONTRAST CLINICAL HISTORY: Right lower quadrant abdominal pain. Follow-up abnormal CT scan. COMPARISON STUDY: Abdominal CT dated 07/02/2022. TECHNIQUE: CT scan of the abdomen and pelvis is performed from the lung bases to the proximal femora. Images are reviewed in the axial, sagittal, and coronal planes. IV contrast was not administered for this examination. Note that the examination is suboptimal without IV contrast. Oral contrast was utilized. A dose lowering technique was utilized adhering to the principles of ALARA. CT DOSE: 605.58 mGy.cm FINDINGS: Lung bases: The heart is normal in size and without pericardial effusion. The lung bases are clear. There is a small hiatal hernia. Liver: The unenhanced liver is normal and size and contour. The liver demonstrates diminished attenuation indicating steatosis. There is no intrahepatic biliary ductal dilatation. Gallbladder: There is a large calcified gallstone without CT evidence of acute cholecystitis. Spleen: Normal in size and attenuation. Pancreas: The unenhanced pancreas is grossly unremarkable. Adrenal glands: Unremarkable. Kidneys: The unenhanced kidneys are normal in size and without hydronephrosis. No renal calculi are identified. No ureteral stone is seen. A 4.3 cm cyst is noted on the left. Abdominal vasculature: The abdominal aorta is normal in course and caliber noting moderate to advanced atherosclerotic calcification. Bowel: There is no bowel obstruction. Enteric contrast reaches the left colon. The appendix is well-visualized and normal, containing enteric contrast. Peritoneum: There is no intraperitoneal free air or abdominal ascites. There is a small fat-containing umbilical hernia. Lymphadenopathy: None. Pelvic viscera: The bladder, uterus, and adnexa are normal as visualized. Skeletal structures: The skeletal structures are osteopenic. There is mild l umbosacral spondylosis. No lytic or blastic lesions are seen. IMPRESSION: 1. No acute infectious or inflammatory findings are identified in the abdomen or pelvis. 2. There is no CT evidence of acute appendicitis. 3. Cholelithiasis. 4. Hepatic steatosis. 5. Additional findings as above. ACT 112: Negative or not required by law. Electronically signed by: Abdelrahman Contreras M.D. 07/03/2022 7:55 AM Chest X-Ray 07/02/22 21:23 XR chest 1V portable HISTORY: renal failure COMPARISON: None. FINDINGS: The cardiac silhouette is borderline enlarged. No focal lung consolidations to suggest pneumonia. No evidence for pulmonary edema. No pleural effusions. No pneumothorax. IMPRESSION: Borderline cardiomegaly. Otherwise, no acute process within the chest. ACT 112: Negative or not required by law. Electronically signed by: Camilo Roa M.D. 07/03/2022 8:46 AM Medications Administered Current Inpatient Medications Acetaminophen (Acetaminophen 325 Mg Tab) 650 mg PO Q4H PRN PRN Reason: pain/fever Stop: 08/01/22 23:41 Last Admin: 07/03/22 00:27 Dose: 650 mg Amlodipine Besylate (Amlodipine Besylate 5 Mg Tab) 5 mg PO DAILY SANKET Stop: 08/02/22 08:59 Last Admin: 07/03/22 08:36 Dose: 5 mg Aspirin (Aspirin 81 Mg Ectab) 81 mg PO DAILY SANKET Stop: 08/02/22 08:59 Last Admin: 07/03/22 08:36 Dose: 81 mg Dextrose (Dextrose 50% 50 Ml Syringe) 25 - 50 ml IV UD PRN; Protocol PRN Reason: Hypoglycemia Protocol Stop: 08/01/22 23:41 Glucagon (Glucagon For Inj 1 Mg Vial) 1 mg SQ UD PRN; Protocol PRN Reason: Hypoglycemia Protocol Stop: 08/01/22 23:41 Glucose (Glucose 40% Gel 15 Gm Tube) 15 - 30 gm PO UD PRN; Protocol PRN Reason: Hypoglycemia Protocol Stop: 08/01/22 23:41 Glucose (Glucose 10 Tab/Tube) 4 - 8 tab PO UD PRN; Protocol PRN Reason: Hypoglycemia Treatment Stop: 08/01/22 23:41 Heparin Sodium (Porcine) (Heparin Sod 5,000 Unit/0.5 Ml Vial) 5,000 units SQ Q8 SANKET Stop: 08/02/22 05:59 Last Admin: 07/03/22 05:50 Dose: Not Given Hydromorphone HCl (Hydromorphone Inj 0.5 Mg/0.5 Ml Syr) 0.5 mg IV Q3H PRN PRN Reason: Pain Stop: 07/16/22 23:41 Lactated Ringer's (Lr) 1,000 mls @ 125 mls/hr IV .Q8H SANKET Stop: 07/04/22 02:59 Last Admin: 07/03/22 09:35 Dose: 125 mls/hr Promethazine HCl 12.5 mg/ (Sodium Chloride) 50.5 mls @ 202 mls/hr IV Q6H PRN PRN Reason: Nausea And Vomiting Stop: 08/01/22 23:41 Insulin Aspart (Insulin Aspart Per Unit) 0 units SC ACHS [facility] Stop: 08/02/22 07:29 Last Admin: 07/03/22 08:50 Dose: Not Given Loperamide HCl (Loperamide Hcl 2 Mg Cap) 2 mg PO TID PRN PRN Reason: Diarrhea Stop: 08/02/22 11:39 Miscellaneous (Vesicare~Order Awaiting Action) 1 each N/A QS [facility] Stop: 08/02/22 00:00 Last Admin: 07/03/22 08:35 Dose: Not Given Miscellaneous (Carbohydrates For Hypoglycemia ) 15 - 30 gm PO UD PRN PRN Reason: Hypoglycemia Protocol Stop: 08/01/22 23:41 Pantoprazole Sodium (Pantoprazole 40 Mg Tab) 40 mg PO DAILYBB [facility] Stop: 08/02/22 06:29 Last Admin: 07/03/22 05:46 Dose: 40 mg Psyllium Hydrophilic Mucilloid (Psyllium Or Guar Gum Fiber Powder Packet) 1 pkt PO QAM [facility] Stop: 08/02/22 09:29 Last Admin: 07/03/22 11:17 Dose: 1 pkt Tramadol HCl (Tramadol Hcl 50 Mg Tablet) 25 - 50 mg PO Q4H PRN PRN Reason: Pain Stop: 08/01/22 23:41
[2022-07-03] MEDS: amLODIPine BESYLATE 5 MG TAB PO SCH (20:14)
[2022-07-04] MEDS: PANTOprazole 40 MG TAB PO SCH (05:58)
[2022-07-04] MEDS: HEPARIN SOD 5,000 UNIT/0.5 ML VIAL SQ SCH (05:58)
[2022-07-04 06:57] LABS: Hematocrit (blood only) 35.5 % (34.1-44.9); Hemoglobin 12.6 g/dl (12.0-16.0); Mean Corpuscular Hemoglobin 31.2 pg (25.0-34.0); Mean Corpuscular Hgb Conc 35.5 g/dL (32.0-36.0); Mean Corpuscular Volume 87.9 fL (80.0-100.0); Platelet Count 223 K/uL (130-400); RDW Coefficient of Variation 12.5 % (11.5-14.5); RDW Standard Deviation 40.4 fL (36.4-46.3); Red Blood Count 4.04 M/uL (3.93-5.22); White Blood Count 7.62 K/ul (4.8-10.8)
[2022-07-04 07:15] LABS: BUN Creatinine Ratio 10.3 (10-20); Calcium 9.3 mg/dl (8.5-10.1); Creatinine Clr Calc Pharmacy 26.5 ml/min; Est GFR (African American) 29.9 ml/min; Est GFR (Non-African American) 25.8 ml/min; Magnesium 1.7 mg/dl (1.7-2.4); Phosphorus 3.2 mg/dl (2.5-4.9); Potassium 3.4 mmol/L (3.5-5.1)
[2022-07-04] MEDS: PSYLLIUM or GUAR GUM FIBER POWDER PACKET PO SCH (08:02)
[2022-07-04] MEDS: ASPIRIN 81 MG ECTAB PO SCH (08:04)
[2022-07-04] MEDS: amLODIPine BESYLATE 5 MG TAB PO SCH (08:04)
[2022-07-04] MEDS: INSULIN ASPART PER UNIT SC SCH (10:02)
--- NOTE | 2022-07-04 17:46 | Discharge Summary ---
Date of Service July 04, 2022 Admission HPI Per Admitting Provider History obtained from patient and records. Medical history significant for hypertension, hyperlipidemia, GERD, DM2 on oral medications, primary hyperparathyroidism status post surgery. This afternoon, patient was cooking some be when she suddenly felt sick after smelling the meat. Subsequent epigastric and right-sided abdominal pain with nausea and bilious emesis. No fever, no chills, no chest pain, no SOB. Usual diarrhea symptoms not bothering her today. Patient brought by to the ER. Medical History as above Surgical History : Parathyroidectomy, finger surgery, BTL, tonsillectomy Family History : DM, heart disease, stroke Personal/Social history : Non-smoker, occasional EtOH intake, retired from factory work/grocery employment Admission Exam Per Admitting Provider GENERAL: Comfortable, obese, pleasant, no respiratory distress SKIN: Normal color, warm HEENT: Bespectacled, [place] palpebral conjunctivae, no ptosis, dry buccal mucosa NECK : Supple, short neck, no tenderness CHEST : CTA, no tenderness HEART : RRR, no obvious murmurs ABDOMEN: Some distention, epigastric tenderness EXTREMITIES : Minimal LE swelling, no LE tenderness, no other conspicuous deformities noted NEUROLOGIC : Coherent, no facial asymmetry, no other gross focality Principal Diagnosis (1) MARYLU (acute kidney injury): (2)Gastroenteritis 3) HTN 4) Type 2 DM Discharge Exam General: Lying comfortably in bed, not in distress, on room air HEENT: EOMI, PERRL, MMM Chest: Clear breath sounds bilaterally, no wheezes or crackles CVS: Regular rate and rhythm, normal heart sounds, no murmur Abdomen: Soft, non tender, not distended, bowel sounds present Neuro: Awake, alert, oriented, conversing well, non focal Extremities: No edema Discharge Data Allergies Allergy/AdvReac Type Severity Reaction Status Date / Time lisinopril Allergy Mild VOMITING, Unverified 07/02/22 20:56 COUGH oxycodone Allergy Mild VOMITING Unverified 07/25/10 21:26 atorvastatin [From Lipitor] AdvReac Unknown leg cramps Verified 07/02/22 20:56 olmesartan [From Benicar] AdvReac Unknown Diarrhea Verified 07/02/22 20:56 Consultations 07/02/22 21:09 ED Decision to Admit Stat Ordered Studies 07/02/22 17:09 CT abd pelvis wo con Stat 07/02/22 17:54 CT abd pelvis oral con only Stat Hospital Course (1) MARYLU (acute kidney injury): (2) Nausea vomiting and diarrhea: Plan Patient is a 66-year-old female with past medical history of borderline diabetes and borderline celiac disease, GERD, type 2 diabetes mellitus, hypertension presented to the ED with nausea vomiting and diarrhea. CT abdomen and pelvis was done which did not reveal any acute abnormality. GI bio fire was negative. Patient was treated with supportive management with IV fluids antiemetics and Imodium. Patient was also found to have MARYLU with creatinine of 3.76. Her creatinine down trended with IV hydration to 1.96. At the day of the discharge, patient had no episode of nausea vomiting or diarrhea. She was making good amount of urine. She was instructed to hold off losartan and metformin till she sees her PCP and has labs done. Her Norvasc was increased to twice daily for the time being for high blood pressure. Patient was also instructed to drink to keep herself hydrated. Total Time Total Time Spent Total Time Spent (In Minutes): 35 Total Time Includes: Examination of the Patient, Discharge Planning, Medication Reconciliation, Communication With Other Providers and Other Discharge Plan Discharge Items Patient Disposition: Home - Self-Care Reason For Visit: ARF Discharge Diagnosis: 1) Acute Kidney Injury 2) Gastroenteritis 3) GERD 4) Type 2 DM Activity: Resume your previous activity Non-emergency contact: Primary Care Provider Call non-emergency contact if: you have any medication questions and your symptoms worsen Follow-up/Referrals: Doroteo Hammond MD [Primary Care Provider] - (Date & Time 07/13/2022 11:00 AM Provider Doroteo Hammond III, MD Department [facility] ) Diet: Regular Addtl Attending Provider Instructions: Please folllow up with your PCP as soon as possible later this week. Please stop taking losartan, metformin till you see your primary care doctor and repeat your kidney function test. Maintain Diabetic diet. Please increase the frequency of amlodipine to 2 times daily ( one in morning and one at night). Drink plenty of fluids. If diarrhea recurs, please contact your PCP. Pending Studies at Discharge: No Stand-Alone Forms: My MXP4, Smoking Cessation Medications and DC Order Prescriptions: New amlodipine [Norvasc] 5 mg Tablet 5 mg PO BID Qty: 30 0RF Continued pantoprazole 40 mg tablet,delayed release (DR/EC) 40 mg PO DAILYBB rosuvastatin 20 mg tablet 20 mg PO HS solifenacin 10 mg tablet 10 mg PO QAM indapamide 2.5 mg tablet 2.5 mg PO DAILY aspirin 81 mg Tablet,Delayed Release (Dr/Ec) 81 mg PO DAILY cholecalciferol (vitamin D3) [Vitamin D3] 50 mcg (2,000 unit) Tablet 50 mcg PO DAILY Discontinued amlodipine 5 mg tablet 5 mg PO DAILY losartan 100 mg tablet 100 mg PO DAILY metformin 500 mg tablet extended release 24 hr 1,000 mg PO BID Discharge Orders: Discharge Order (Routine); Ordered 07/04/22 Ordered By: Prabhu Granado Admission Data Admit Date/Time: 07/02/22 22:18 Attending Provider: Prabhu Granado Admit Provider: Tayo Stevens Primary Care Provider: Doroteo Hammond Other Providers: Tayo Stevens Other Interventions: Discharge Summary Assessment (RN) Last Done: 07/04/22 10:38
== END 2022-07-04 11:25 | disposition home or self-care (01) | DRG 684 ==
LOC: ED 15:11 → SUATTDRO 22:18 → 3W 22:18

== ENCOUNTER 2023-06-26 15:38 | Inpatient (IN) ==
--- NOTE | 2023-06-26 15:46 | ED Triage Note ---
Date of Service June 26, 2023 History of Present Illness This patient was briefly evaluated while in triage. An abbreviated physical exam was performed. This patient is a 67-year-old Female who presents to the ED for evaluation of acute appendicitis. CT done at [facility] earlier today and showed 14 mm ap pendix. Symptoms started 2 days ago. Last food/drink was about 9am. Physical Exam Limited Triage Exam: VITALS: Vitals are noted on the nurse's note and reviewed by myself. Vital signs stable. GENERAL: Well-developed, well-nourished, white female, who is in no acute distress and resting comfortably. Patient is cooperative with the examination. HEART: Regular rate and rhythm without murmurs gallops or rubs. LUNGS: Clear to auscultation bilaterally without wheezes, rales or rhonchi. No retractions or accessory muscle use. NEURO: Patient was alert and oriented to person place and time. CN II through XII grossly intact. Initial orders for labs and / or imaging were placed and patient was placed in the waiting area until a bed is available. Please see further documentation for the full ED course. MDM / Impression Impression Impression: Acute appendicitis Impression: Acute appendicitis Qualifiers: Acute appendicitis type: with localized peritonitis Appendicitis gangrene presence: unspecified whether gangrene present Appendicitis perforation presence: unspecified whether perforation present Appendicitis abscess presence: unspecified whether abscess present Qualified Code(s): K35.30 - Acute appendicitis with localized peritonitis, without perforation or gangrene
[2023-06-26] MEDS ORDERED: cefOXitin 2,000 MG/60 ML BAG IV STA (15:47)
[2023-06-26] MEDS ORDERED: SODIUM CHLORIDE 0.9% 1000ML 1,000 ML IV ONE (15:54)
--- NOTE | 2023-06-26 15:59 | Emergency Department Note ---
Impression & Plan Acute appendicitis ED Provider Note NAME: HAKEEM NORRIS AGE: 67 SEX: F : 1955 ARRIVES VIA: Walk-In INFORMANT: Patient, ED PROVIDER(S): Julio Cesar Wick DO CHIEF COMPLAINT: Abdominal pain HPI: The patient is a 67-year-old female who presented to the emergency department for an evaluation of 2 to 3 days of abdominal pain. The patient s tarted having right-sided abdominal pain over the last few days. She was seen by her family doctor. She had outpatient labs and CT. She was sent to the emergency department because a CT showed signs of acute appendicitis. She denies having any fever. She denies having any vomiting or GI bleeding. The patient denies having any changes to her medications recently. She states that she does not take blood thinners. ROS: See above HPI for pertinent positives & negatives. A total of 10 systems reviewed and were otherwise negative. PAST MEDICAL HISTORY: See Below PAST SURGICAL HISTORY: See Below FAMILY HISTORY: See Below SOCIAL HISTORY: See Below HOME MEDICATIONS: See Below ALLERGIES: See Below VITALS: See Below PHYSICAL EXAMINATION: GENERAL: Patient is awake alert in no acute distress patient is resting comfortably and showing no signs of anxiety EYES: The conjunctivae are clear. The pupils are round and reactive. EARS, NOSE, MOUTH AND THROAT: The nose is without any evidence of any deformity. Mucous membranes are moist. Tongue is midline. NECK: The neck is nontender and supple. RESPIRATORY: Normal respiratory effort is noted there is no evidence of wheezing rhonchi or rales CARDIOVASCULAR: Regular rate and rhythm noted there no murmurs rubs or gallops normal S1 normal S2. GASTROINTESTINAL: The abdomen was mildly distended but soft. There is right lower quadrant tenderness to palpation with guarding in the right lower quadrant. MUSCULOSKELETAL/EXTREMITIES: There is no evidence of gross deformity full range of motion is noted in the hips and shoulders. SKIN: There is no obvious evidence of any rash. There are no petechiae, pallor or cyanosis noted. NEUROLOGIC: Patient is awake alert and oriented x3. Gait was steady. MEDICAL DECISION MAKING: The patient is a 67-year-old female who presented to the emergency department for an evaluation of lower abdominal pain. The patient's been having symptoms through the course of the last 3 to 4 days. She had a CT as an outpatient which did show signs of acute appendicitis. The patient was treated with IV antibiotics. She was treated with IV fluids. I discussed her condition with the on-call general surgeon. She was evaluated in the ER by general surgery was felt to be a good candidate for operative management. Triage Nursing notes reviewed. Prior medical records reviewed Vital Signs: reviewed and remarkable for no significant abnormalities Differential diagnosis: Etiologies such as appendicitis, diverticulitis, obstruction, inflammatory bowel disease, renal colic, PUD, biliary pathology, pancreatitis, mesenteric ischemia, aortic pathology, infections, genitourinary, UTI, perforated viscus, as well as others were entertained. ER treatment provided: See below Diagnostics interpreted by me: ECG: EKG was obtained in the emergency department. My interpretation is normal sinus rhythm at [address] segment depressions were noted in the lateral leads. This was compared to a tracing from July 02, 2022. No changes were noted Cardiac Monitoring: An order was placed for continuous cardiac monitoring. The monitor shows a rate of 71 bpm with sinus rhythm. Laboratory studies: As stated above and show below. Imaging studies: See below. Radiographic imaging was reviewed by myself Consultation(s): I discussed this case with Dr. 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 Beliefs That Will Affect Care: None Current Living Situation: Spouse Feels Safe at Home: Yes Assistive Devices: None Allergies Allergies Allergy/AdvReac Type Severity Reaction Status Date / Time lisinopril Allergy Mild VOMITING, Verified 06/26/23 17:24 COUGH oxycodone Allergy Mild VOMITING Verified 06/26/23 17:24 atorvastatin [From Lipitor] AdvReac Unknown leg cramps Verified 06/26/23 17:24 olmesartan [From Benicar] AdvReac Unknown Diarrhea Verified 06/26/23 17:24 Home Meds Home Medications Medication Instructions Recorded Confirmed indapamide 2.5 mg tablet 2.5 mg PO DAILY 07/02/22 06/26/23 pantoprazole 40 mg tablet,delayed 40 mg PO DAILYBB 07/02/22 06/26/23 release rosuvastatin 20 mg tablet 20 mg PO HS 07/02/22 06/26/23 amlodipine 5 mg tablet (Norvasc) 2.5 mg PO DAILY 06/26/23 06/26/23 losartan 100 mg tablet 100 mg PO DAILY 06/26/23 06/26/23 semaglutide 0.25 mg or 0.5 mg (2 mg subcut WK 06/26/23 mg/3 mL) subcutaneous pen injector (Ozempic) Results & Data (ED) Vital Signs Vital Signs - 24 hr 06/26/23 15:43 06/26/23 16:38 06/26/23 16:45 Temperature 36.4 C L Temperature Source Temporal Artery Scan Pulse Rate 84 71 Pulse Rate [Apical] 72 Pulse Rhythm [Apical] Regular Respiratory Rate 16 18 Respiratory Effort / Characteristics Non-Labored Spontaneous Respiratory Depth Normal Respiratory Pattern Regular Blood Pressure 147/88 H Blood Pressure [Right Arm] 144/92 H Blood Pressure Mean 107 Blood Pressure Mean [Right Arm] 109 Blood Pressure Position [Right Arm] Lying Pulse Oximetry 96 98 Oxygen Delivery Method Room Air Room Air Sepsis Recent Fever Within 48 Hours No Sepsis New/Unexplained Change in Mental Status N/A Sepsis Action Taken by Nursing No Action Required 06/26/23 17:16 06/26/23 17:20 Temperature 36.8 C Temperature Source Oral Pulse Rate Pulse Rate [Apical] 71 Pulse Rhythm [Apical] Respiratory Rate 22 Respiratory Effort / Characteristics Non-Labored Spontaneous Respiratory Depth Normal Respiratory Pattern Regular Blood Pressure Blood Pressure [Right Arm] 137/78 Blood Pressure Mean Blood Pressure Mean [Right Arm] 97 Blood Pressure Position [Right Arm] Semi-fowlers Pulse Oximetry Oxygen Delivery Method Room Air Room Air Sepsis Recent Fever Within 48 Hours Sepsis New/Unexplained Change in Mental Status Sepsis Action Taken by Group Home Medications Current Medication List: was personally reviewed by me Laboratory Data Attestation: I reviewed the patient's lab results. 06/26/23 16:02 06/26/23 16:02 Lab Results 08/22/23 08/22/23 08/22/23 Range/Units 16:00 16:02 16:02 WBC 11.58 H (4.8-10.8) K/ul RBC 4.91 (4.20-5.40) M/uL Hgb 15.6 (12.0-16.0) g/dl Hct 42.9 (37.0-47.0) % MCV 87.4 (80.0-100.0) fL MCH 31.8 (25.0-34.0) pg MCHC 36.4 H (32.0-36.0) g/dL RDW Std Deviation 38.6 (36.4-46.3) fL RDW Coeff of Misael 11.9 (11.5-14.5) % Plt Count 292 (130-400) K/uL MPV 10.5 (9.4-12.4) fL Immature Gran % (Auto) 0.4 % Neut % (Auto) 59.0 % Lymph % (Auto) 30.6 % [place] % (Auto) 9.0 % Eos % (Auto) 0.4 % Baso % (Auto) 0.6 % Neut # (Auto) 6.83 H (1.40-6.50) K/uL Lymph # (Auto) 3.54 H (1.2-3.4) K/uL [place] # (Auto) 1.04 H (0.11-0.59) K/uL Eos # (Auto) 0.05 (0-0.50) K/uL Baso # (Auto) 0.07 (0-0.2) K/uL Immature Gran # (Auto) 0.05 (0.01-0.20) K/uL PT 11.3 (9.0-12.0) Seconds INR 1.0 (0.9-1.1) APTT 27.9 (21.0-31.0) Seconds PTT Ratio 1.0 Sodium 137 (136-145) mmol/L Potassium 3.0 L (3.5-5.1) mmol/L Chloride 97 L (98-107) mmol/L Carbon Dioxide 27 (21-32) mmol/L Anion Gap 13 H (3-11) BUN 25 H (6-23) mg/dl Creatinine 1.21 H (0.6-1.2) mg/dl Est Cr Clr Drug Dosing Not Reportable Est GFR ( Amer) 53.2 ml/min Est GFR (Non-Af Amer) 45.9 ml/min BUN/Creatinine Ratio 20.7 H (10-20) Glucose 108 H (70-99(Fasting)) mg/dl POC Glucose (70-99) mg/dl Calcium 10.1 (8.6-10.3) mg/dl Total Bilirubin 3.4 H (0.2-1.0) mg/dl AST 23 (13-39) U/L ALT 38 (7-52) U/L Alkaline Phosphatase 52 (34-104) U/L Troponin I High Sens 9.1 (0-14) pg/ml Total Protein 8.4 H (6.0-8.3) gm/dl Albumin 4.3 (3.4-5.0) gm/dl Globulin 4.1 H (2.5-4.0) gm/dl Albumin/Globulin Ratio 1.0 (0.9-2) 06/26/23 Range/Units 17:26 WBC (4.8-10.8) K/ul RBC (4.20-5.40) M/uL Hgb (12.0-16.0) g/dl Hct (37.0-47.0) % MCV (80.0-100.0) fL MCH (25.0-34.0) pg MCHC (32.0-36.0) g/dL RDW Std Deviation (36.4-46.3) fL RDW Coeff of Misael (11.5-14.5) % Plt Count (130-400) K/uL MPV (9.4-12.4) fL Immature Gran % (Auto) % Neut % (Auto) % Lymph % (Auto) % [place] % (Auto) % Eos % (Auto) % Baso % (Auto) % Neut # (Auto) (1.40-6.50) K/uL Lymph # (Auto) (1.2-3.4) K/uL [place] # (Auto) (0.11-0.59) K/uL Eos # (Auto) (0-0.50) K/uL Baso # (Auto) (0-0.2) K/uL Immature Gran # (Auto) (0.01-0.20) K/uL PT (9.0-12.0) Seconds INR (0.9-1.1) APTT (21.0-31.0) Seconds PTT Ratio Sodium (136-145) mmol/L Potassium (3.5-5.1) mmol/L Chloride (98-107) mmol/L Carbon Dioxide (21-32) mmol/L Anion Gap (3-11) BUN (6-23) mg/dl Creatinine (0.6-1.2) mg/dl Est Cr Clr Drug Dosing Est GFR ( Amer) ml/min Est GFR (Non-Af Amer) ml/min BUN/Creatinine Ratio (10-20) Glucose (70-99(Fasting)) mg/dl POC Glucose 104 H (70-99) mg/dl Calcium (8.6-10.3) mg/dl Total Bilirubin (0.2-1.0) mg/dl AST (13-39) U/L ALT (7-52) U/L Alkaline Phosphatase (34-104) U/L Troponin I High Sens (0-14) pg/ml Total Protein (6.0-8.3) gm/dl Albumin (3.4-5.0) gm/dl Globulin (2.5-4.0) gm/dl Albumin/Globulin Ratio (0.9-2) Administered Medications Discontinued Medications Cefoxitin Sodium (Mefoxin) 2,000 mg in 60 mls @ 100 mls/hr IV NOW STA Stop: 06/26/23 16:22 Last Admin: 06/26/23 16:36 Dose: 100 mls/hr Documented By: VANESSA Sodium Chloride (Nss 1000ml) 1,000 mls @ 999 mls/hr IV .Q1H1M ONE Stop: 06/26/23 16:54 Last Admin: 06/26/23 16:36 Dose: 999 mls/hr Documented By: VANESSA Imaging Data Attestation: I personally reviewed and interpreted this imaging study as follows: My Impression: 1 view chest x-ray was obtained in the emergency department. My interpretation is no free air or definite infiltrate, final report below Radiologist's Impression: Chest X-Ray 06/26/23 16:20 XR chest 1V portable CLINICAL HISTORY: abd pain TECHNIQUE: Single frontal radiograph of the chest was obtained. Comparison: Comparison is made to chest radiograph 07/02/2022 FINDINGS: No lines and tubes are seen. The cardiomediastinal silhouette is normal. The lungs are clear. No evidence of pleural effusion or pneumothorax. IMPRESSION: No acute chest disease. ACT 112: Negative or not required by law. Electronically signed by: Roberto Steele M.D. 06/26/2023 5:00 PM Discharge Plan Visit Data Chief Complaint: Referred by Doctor Stated Complaint: APPENDISITIS ED Provider: Julio Cesar Wick Discharge Problem: Acute appendicitis Patient Disposition: Being Evaluated by Surgeon Discharge Instructions Interventions: ED Discharge Assessment Last Done: 06/26/23 17:16
[2023-06-26 16:29] LABS: Basophils # (auto) 0.07 K/uL (0-0.2); Basophils % (auto) 0.6 %; Eosinophils # (auto) 0.05 K/uL (0-0.50); Eosinophils % (auto) 0.4 %; Hematocrit (blood only) 42.9 % (37.0-47.0); Hemoglobin 15.6 g/dl (12.0-16.0); Immature Granulocytes # (auto) 0.05 K/uL (0.01-0.20); Immature Granulocytes % (auto) 0.4 %; Lymphocytes # (auto) 3.54 K/uL (1.2-3.4); Lymphocytes % (auto) 30.6 %; Mean Corpuscular Hemoglobin 31.8 pg (25.0-34.0); Mean Corpuscular Hgb Conc 36.4 g/dL (32.0-36.0); Mean Corpuscular Volume 87.4 fL (80.0-100.0); Mean Platelet Volume 10.5 fL (9.4-12.4); Monocytes # (auto) 1.04 K/uL (0.11-0.59); Neutrophils # (auto) 6.83 K/uL (1.40-6.50); Platelet Count 292 K/uL (130-400); RDW Coefficient of Variation 11.9 % (11.5-14.5); RDW Standard Deviation 38.6 fL (36.4-46.3); Red Blood Count 4.91 M/uL (4.20-5.40); White Blood Count 11.58 K/ul (4.8-10.8)
--- NOTE | 2023-06-26 16:39 | History & Physical Report ---
Date of Service June 26, 2023 Assessment & Plan (1) Acute appendicitis: Plan: Patient is for laparoscopic appendectomy possible open appendectomy Possible drain placement She is receiving cefoxitin antibiotic We will proceed to the OR soon as possible History of Present Illness Primary Care Provider: Doroteo Hammond MD 67-year-old female with 2 to 3 days of abdominal pain now in the right lower quadrant Seen by her PCP as an outpatient and had a CT scan at [facility] CT scan showed acute appendicitis with a 14 mm appendix, surrounding inflammation but no fluid Patient with a history of hypertension and type 2 diabetes Allergies Allergy/AdvReac Type Severity Reaction Status Date / Time lisinopril Allergy Mild VOMITING, Unverified 07/02/22 20:56 COUGH oxycodone Allergy Mild VOMITING Unverified 07/25/10 21:26 atorvastatin [From Lipitor] AdvReac Unknown leg cramps Verified 07/02/22 20:56 olmesartan [From Benicar] AdvReac Unknown Diarrhea Verified 07/02/22 20:56 Home Medications Medication Instructions Recorded Confirmed Type aspirin 81 mg tablet,delayed 81 mg PO DAILY 07/02/22 07/02/22 History release cholecalciferol (vitamin D3) 50 50 mcg PO DAILY 07/02/22 07/02/22 History mcg (2,000 unit) tablet (Vitamin D3) indapamide 2.5 mg tablet 2.5 mg PO DAILY 07/02/22 07/02/22 History pantoprazole 40 mg tablet,delayed 40 mg PO DAILYBB 07/02/22 07/02/22 History release rosuvastatin 20 mg tablet 20 mg PO HS 07/02/22 07/02/22 History solifenacin 10 mg tablet 10 mg PO QAM 07/02/22 07/02/22 History amlodipine 5 mg tablet (Norvasc) 5 mg PO BID #30 tabs 07/04/22 Rx Past Med/Surg History Medical History MARYLU (acute kidney injury) Diabetes HLD (hyperlipidemia) HTN (hypertension) Nausea vomiting and diarrhea No pertinent family history Surgical History Hx of tonsillectomy Social History Smoking Status: Unknown if ever smoked Hx Alcohol Use: Yes Hx Substance Use: No Preferred Language: Turkmen Communication Ability: Effective 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 Beliefs That Will Affect Care: None Current Living Situation: Spouse Feels Safe at Home: Yes Assistive Devices: None Review of Systems All systems reviewed & are unremarkable except as noted in HPI & below Physical Exam Physical Exam: Patient has severe tenderness in the right lower quadrant to palpation consistent with peritoneal irritation Constitutional: well developed; no acute distress Eyes: + anicteric sclerae Respiratory: normal respiratory effort; no respiratory distress Cardiovascular: Rate/Rhythm: regular rhythm Gastrointestinal (Abdomen): Inspection/Auscultation: abdomen not distended Musculoskeletal: Head/Neck/Chest: head atraumatic Skin: no rashes, warm and dry Neurologic: awake Psychiatric: Orientation: alert Results & Data Vital Signs (Past 12 Hours) Vital Signs Temp Pulse Resp BP Pulse Ox O2 Del Method 06/26/23 15:43 36.4 C L 84 16 147/88 H 96 Room Air
[2023-06-26 16:44] LABS: Alanine Aminotransferase 38 U/L (7-52); Albumin Level 4.3 gm/dl (3.4-5.0); Alkaline Phosphatase 52 U/L (34-104); Anion Gap 13 (3-11); Aspartate Aminotransferase 23 U/L (13-39); BUN Creatinine Ratio 20.7 (10-20); Bilirubin,Total 3.4 mg/dl (0.2-1.0); Blood Urea Nitrogen 25 mg/dl (6-23); Calcium 10.1 mg/dl (8.6-10.3); Carbon Dioxide 27 mmol/L (21-32); Chloride 97 mmol/L (98-107); Est GFR (African American) 53.2 ml/min; Est GFR (Non-African American) 45.9 ml/min; Globulin 4.1 gm/dl (2.5-4.0); Glucose 108 mg/dl (70-99(Fasting)); Sodium 137 mmol/L (136-145); Total Protein 8.4 gm/dl (6.0-8.3)
[2023-06-26 17:00] LABS: Partial Thromboplastin Time 27.9 Seconds (21.0-31.0); Prothrombin Time 11.3 Seconds (9.0-12.0)
[2023-06-26] MEDS ORDERED: ATROPINE SULFATE 0.1 MG/ML 10ML SYR IV PRN (17:00)
[2023-06-26] MEDS ORDERED: ONDANSETRON INJ 2 MG/ML 2 ML VIAL IV PRN ×2 (17:00→20:16)
[2023-06-26] MEDS ORDERED: ePHEDrine sulfate 50 MG/ML AMP IV PRN (17:00)
--- NOTE | 2023-06-26 17:00 | Anesthesiology Consultation ---
Date of Service June 26, 2023 Assessment & Plan (1) Encounter for pre-operative examination: Chart Review Chart Review: Acceptable Risk for Surgery and Patient NOT seen in Pre Admission Testing Consults Requested none History Surgery Operation Date: 06/26/23 14:30 Proposed Procedures p Laparoscopic Appendectomy, Possible Open - Ector Strong MD, FACS Height/Weight Weight: 81.7 kg Allergies Allergy/AdvReac Type Severity Reaction Status Date / Time lisinopril Allergy Mild VOMITING, Unverified 07/02/22 20:56 COUGH oxycodone Allergy Mild VOMITING Unverified 07/25/10 21:26 atorvastatin [From Lipitor] AdvReac Unknown leg cramps Verified 07/02/22 20:56 olmesartan [From Benicar] AdvReac Unknown Diarrhea Verified 07/02/22 20:56 Medications Home Medications Medication Instructions Recorded Confirmed Last Taken aspirin 81 mg tablet,delayed 81 mg PO DAILY 07/02/22 07/02/22 Unknown release cholecalciferol (vitamin D3) 50 50 mcg PO DAILY 07/02/22 07/02/22 Unknown mcg (2,000 unit) tablet (Vitamin D3) indapamide 2.5 mg tablet 2.5 mg PO DAILY 07/02/22 07/02/22 Unknown pantoprazole 40 mg tablet,delayed 40 mg PO DAILYBB 07/02/22 07/02/22 Unknown release rosuvastatin 20 mg tablet 20 mg PO HS 07/02/22 07/02/22 Unknown solifenacin 10 mg tablet 10 mg PO QAM 07/02/22 07/02/22 Unknown amlodipine 5 mg tablet (Norvasc) 5 mg PO BID #30 tabs 07/04/22 Unknown Past Medical History Medical History MARYLU (acute kidney injury) Diabetes HLD (hyperlipidemia) HTN (hypertension) Nausea vomiting and diarrhea No pertinent family history Past Surgical History Surgical History Hx of tonsillectomy Social History Smoking Status: Unknown if ever smoked Hx Alcohol Use: Yes alcohol intake frequency: holidays/special occasions only Hx Substance Use: No Physical Exam Vital Signs Last Vital Signs Temp 97.5 F L 06/26/23 15:43 Pulse 71 06/26/23 16:45 Resp 18 06/26/23 16:38 BP 144/92 H 06/26/23 16:38 Pulse Ox 98 06/26/23 16:38 O2 Del Method Room Air 06/26/23 16:38 Testing Laboratory Results 06/26/23 16:02 06/26/23 16:02 Electrocardiogram Date: 06/26/23 Findings: + NSR @ Normal sinus rhythm Cannot rule out Inferior infarct , age undetermined Cannot rule out Anterior infarct , age undetermined Abnormal ECG
--- NOTE | 2023-06-26 17:03 | Hospitalist Consultation ---
Date of Consultation June 26, 2023 Assessment & Plan (1) Acute appendicitis: This is a 67yo F with a PMH of DM II, HTN, GERD, h/o parathyroidectomy and other medical problems who presents with lower abdominal pain x 3 days and presented with acute appendicitis. RLQ pain, N/V/D x [address] abd/pelvis showing acute appendicitis with a 14mm dilatation and surrounded inflammation Afebrile, mild leukocytosis 11.58k POD#0 s/o laparoscopic appendectomy by Dr. Strong Per primary service for wound care, VTE, diet Continue Zosyn (2) Hypokalemia: K initially 3 in setting of GI losses, diuretic use. Will replace, post-op BMP pending (3) HTN (hypertension): Normotensive BP. Continue amlodipine, losartan post-operatively. Hold indapamide for now given hypokalemia (4) DM (diabetes mellitus), type 2: A1c 6.3 in 2021, repeat a1c in AM Hold home agents SSI while in-patient BSG AC HS or Q6H while NPO (5) HLD (hyperlipidemia): Continue statin (6) CKD (chronic kidney disease), stage III: Cr 1.2 (baseline ~1-1.1). Continue to monitor with daily BMP (7) GERD (gastroesophageal reflux disease): Continue PPI PCP: Stephany Dispo: Per primary service Patient seen in collaboration with Dr. Kyle. Please see addendum. Supervising Physician Co-Signing Physician Notes Care coordinated with Beatriz Marks PA-C. Agree with above note. Patient seen and examined. Please refer to her notes for full details. Vital signs reviewed. Physical exam: General exam: Alert and oriented. Not in acute distress. CVS: S1 and S2 heard, regular rate and rhythm, no murmurs. RS: Clear to auscultation, no wheezing or crackles. ABD: Soft, bowel sounds sluggish , laparoscopic site no drainage seen, , no distention. WOOD BARREL RECONDITIONER: Nonfocal. EXT: mild pedal edema present , no erythema. Labs: Reviewed. Assessment and plan: 67-year-old female was on abdominal pain for last 3 days w ent to PCP and CAT scan showing appendicitis. Patient is s/p laparoscopic appendectomy. Postop doing okay. History of hypertension continuing amlodipine and losartan for now. Holding indapamide. We will restart indapamide in a.m. if the labs are okay and patient blood pressure permits. We will continue Protonix for GERD and statin for hyperlipidemia. Placed on insulin sliding scale for diabetes, we will monitor the blood sugars Other diagnosis and plan of care as per Beatriz Marks PA-C. . Senthil clifton MD. History of Present Illness Reason for Consultation: abd pain History of Present Illness This is a 67yo F with a PMH of DM II, HTN, GERD, h/o parathyroidectomy and other medical problems who presents with lower abdominal pain x 3 days. Was seen by PCP earlier today due to right lower abdominal pain described as RLQ sharp, aching pain exacerbated by movement with no alleviating factors. Also has been having diarrhea since yesterday, denies any presence of blood. No associated fever or chills. Outpatient CT abd/pelvis showing acute appendicitis with a 14mm dilatation and surrounded inflammation. Was sent to ED for further evaluation and management. Dr. Strong evaluated and taking to OR for emergent appendectomy. When evaluated in 353-1 post-operatively, patient feeling well. Some surgical site discomfort and feeling of fullness but no nausea. No F/C, lightheadedness, CP, SOB, dysuria or constipation. Allergies Allergy/AdvReac Type Severity Reaction Status Date / Time lisinopril Allergy Mild VOMITING, Verified 06/26/23 17:24 COUGH oxycodone Allergy Mild VOMITING Verified 06/26/23 17:24 atorvastatin [From Lipitor] AdvReac Unknown leg cramps Verified 06/26/23 17:24 olmesartan [From Benicar] AdvReac Unknown Diarrhea Verified 06/26/23 17:24 Home Medications Medication Instructions Recorded Confirmed Type indapamide 2.5 mg tablet 2.5 mg PO DAILY 07/02/22 06/26/23 History pantoprazole 40 mg tablet,delayed 40 mg PO DAILYBB 07/02/22 06/26/23 History release rosuvastatin 20 mg tablet 20 mg PO HS 07/02/22 06/26/23 History amlodipine 5 mg tablet (Norvasc) 2.5 mg PO DAILY 06/26/23 06/26/23 History losartan 100 mg tablet 100 mg PO DAILY 06/26/23 06/26/23 History semaglutide 0.25 mg or 0.5 mg (2 0.25 mg subcut WK 06/26/23 06/26/23 History mg/3 mL) subcutaneous pen injector (Ozempic) Patient History Medical History (Updated 06/26/23 @ 20:18 by Beatriz Marks PA-C) CKD (chronic kidney disease), stage III DM (diabetes mellitus), type 2 GERD (gastroesophageal reflux disease) HLD (hyperlipidemia) HTN (hypertension) Urge incontinence Surgical History (Updated 06/27/23 @ 07:08 by Ector Strong MD, FACS) H/O parathyroidectomy Hx of tonsillectomy Family History Other Heart disease Hypertension Stroke Social History (Updated 06/26/23 @ 18:34 by Beatriz Marks PA-C) Smoking Status: Never smoker Hx Alcohol Use: Yes Alcohol type: wine Hx Substance Use: No Preferred Language: Persian Communication Ability: Effective Molecular Spectroscopist Required: No Beliefs That Will Affect Care: None Current Living Situation: Spouse Current Living Situation Comment: lives in an apartment with and dog Other Information That Helps Us Care for You: No Feels Safe at Home: Yes Safety Concerns: Feels Safe At This Time Assistive Devices: CPAP and Glasses Review of Systems Review of Systems: At least ten systems reviewed and negative except as noted in the HPI. Physical Exam Physical Exam: Please see Dr. Kyle's addendum for physical exam. Results & Data Results & Data Vital Signs (Past 12 Hours) Vital Signs Temp Pulse Pulse Resp BP BP Pulse Ox 06/26/23 16:45 71 06/26/23 16:38 72 18 144/92 H 98 06/26/23 15:43 36.4 C L 84 16 147/88 H 96 O2 Del Method 06/26/23 16:45 06/26/23 16:38 Room Air 06/26/23 15:43 Room Air Laboratory Results Short CBC 06/26/23 Range/Units 16:02 WBC 11.58 H (4.8-10.8) K/ul Hgb 15.6 (12.0-16.0) g/dl Hct 42.9 (37.0-47.0) % Plt Count 292 (130-400) K/uL BMP 06/26/23 16:02 Sodium 137 Potassium 3.0 L Chloride 97 L Carbon Dioxide 27 BUN 25 H Creatinine 1.21 H Glucose 108 H Calcium 10.1 Liver Function 06/26/23 Range/Units 16:02 Total Bilirubin 3.4 H (0.2-1.0) mg/dl AST 23 (13-39) U/L ALT 38 (7-52) U/L Alkaline Phosphatase 52 (34-104) U/L Albumin 4.3 (3.4-5.0) gm/dl Diagnostic Findings Chest X-Ray 06/26/23 16:20 XR chest 1V portable CLINICAL HISTORY: abd pain TECHNIQUE: Single frontal radiograph of the chest was obtained. Comparison: Comparison is made to chest radiograph 07/02/2022 FINDINGS: No lines and tubes are seen. The cardiomediastinal silhouette is normal. The lungs are clear. No evidence of pleural effusion or pneumothorax. IMPRESSION: No acute chest disease. ACT 112: Negative or not required by law. Electronically signed by: Roberto Steele M.D. 06/26/2023 5:00 PM ECG Additional Comments: EKG reviewied: Normal sinus rhythm with ST segment depression noted in inferior leads. When compared with ECG of 02-JUL-2022 16:19, No significant change was found (1) Acute appendicitis Acute appendicitis type: with localized peritonitis Appendicitis abscess presence: unspecified whether abscess present Appendicitis gangrene presence: unspecified whether gangrene present Appendicitis perforation presence: unspecified whether perforation present Qualified Code(s): K35.30 - Acute appendicitis with localized peritonitis, without perforation or gangrene
[2023-06-26 17:07] LABS: Troponin I High Sensitivity 9.1 pg/ml (0-14)
[2023-06-26] MEDS ORDERED: PROPOFOL IV EMULSION 10 MG/ML 20 ML VIAL IV ONE (17:50)
[2023-06-26] MEDS ORDERED: MIDAZOLAM HCL 1 MG/ML 2ML VIAL ONE (17:50)
[2023-06-26] MEDS ORDERED: DEXAMETHASONE SOD INJ 4 MG/ML VIAL ONE (17:50)
[2023-06-26] MEDS ORDERED: fentaNYL citrate PF 100 MCG/2 ML VIAL ONE ×2 (17:50→18:32)
[2023-06-26] MEDS ORDERED: LIDOCAINE 2% 2 ML VIAL/AMP(20MG/ML) INFIL ONE (17:50)
[2023-06-26] MEDS ORDERED: ONDANSETRON INJ 2 MG/ML 2 ML VIAL ONE (17:50)
[2023-06-26] MEDS ORDERED: ROCURONIUM BROMIDE 10 MG/ML 5 ML VIAL IV ONE (17:51)
[2023-06-26] MEDS ORDERED: SUGAMMADEX SODIUM 200 MG/2 ML VIAL IV ONE (17:54)
[2023-06-26] MEDS ORDERED: BUPIVACAINE 0.5 % 5 MG/1 ML MPF 30ML VIAL ONE (17:56)
[2023-06-26] MEDS ORDERED: ACETAMINOPHEN 1,000 MG/100 ML VIAL IV ONE (18:57)
--- NOTE | 2023-06-26 18:57 | Post Operative Brief Note ---
PG Immediate Post Op with CF Date of Surgery June 26, 2023 Pre & Post Diagnosis Operation Date: 06/26/23 14:30 Pre-Op Diagnosis: Appendicitis Post-Op Diagnosis: Appendicitis I identified the patient and participated in the time-out.: Yes Procedure Operation Date: 06/26/23 14:30 Actual Procedures p Laparoscopic Appendectomy(Not Applicable) - Ector Strong MD, FACS Surgeon Ector Strong MD, FACS Immigration Lawyer Nurses Estimated Blood Loss 5 Findings Consistent with Post-Op Diagnosis Acute appendicitis with no abscess Very adherent to the retroperitoneum Specimens Specimen Description: A. Appendix
[2023-06-26] MEDS: fentaNYL citrate PF 100 MCG/2 ML VIAL IV PRN ×3 (19:07→19:17)
--- NOTE | 2023-06-26 19:10 | Operative Report ---
PG Post Operative Report Pre & Post Diagnosis Operation Date: 06/26/23 14:30 Pre-Op Diagnosis: Appendicitis Post-Op Diagnosis: Appendicitis I identified the patient and participated in the time-out.: Yes Procedure Operation Date: 06/26/23 14:30 Actual Procedures p Laparoscopic Appendectomy(Not Applicable) - Ector Strong MD, FACS Surgeon Ector Strong MD, FACS Air Tester Nurses Estimated Blood Loss 5 Findings Consistent with Post-Op Diagnosis Appendix was very thickened and scarred consistent with acute and chronic appendicitis Possibly had appendiceal inflammation from a fecalith Specimens Appendix Description of Procedure Patient brought in the operating room placed operating table supine position Pneumatic stockings and orogastric tube were placed Abdomen was prepped and draped in usual fashion Half percent plain Marcaine was used to anesthetize all incisions Incision was made above the umbilicus carried dissection down to the fascia placing a varies needle producing pneumoperitoneum 11 mm port placed this level and the camera passed Second 5 mm port placed suprapubically, 12 mm port placed left lower quadrant The small bowel and cecum were reflected the appendix was severely adherent to the retroperitoneum and scarred consistent with acute and chronic appendicitis Gradually it was mobilized and using 2 KAELA brown loads the appendix and mesoappendix were transected Appendix was placed in an Endobag and removed through the left lower quadrant port site After appropriate irrigation hemostasis all ports were removed Fascia at the umbilicus and left lower quadrant closed using 0 Vicryl suture and 0 PDS suture respectively Skin reapproximated using subcuticular 4-0 Monocryl Dermabond at the umbilicus and suprapubic area and Steri-Strips left lower quadrant Patient transferred recovery room in stable condition I attest to the content of the Intraoperative Record and any orders documented therein. Any exceptions are noted below.
--- NOTE | 2023-06-26 19:45 | Anesthesiology Progress Note ---
Date of Service June 26, 2023 Anesthesia Post Procedure Vital Signs Vital Signs: Temp Pulse Pulse Resp BP BP BP 06/26/23 19:35 97.9 F 65 20 142/76 H 06/26/23 19:25 69 19 124/77 06/26/23 19:15 71 21 137/72 06/26/23 19:05 97.7 F 69 15 154/84 H 06/26/23 17:20 98.2 F 71 22 137/78 06/26/23 17:16 06/26/23 16:45 71 06/26/23 16:38 72 18 144/92 H 06/26/23 15:43 97.5 F L 84 16 147/88 H Pulse Ox O2 Del Method O2 Flow Rate 06/26/23 19:35 98 Nasal Cannula 2 06/26/23 19:25 96 Nasal Cannula 2 06/26/23 19:15 99 Oxymask 10 06/26/23 19:05 93 Oxymask 10 06/26/23 17:20 Room Air 06/26/23 17:16 Room Air 06/26/23 16:45 06/26/23 16:38 98 Room Air 06/26/23 15:43 96 Room Air Pain Intensity Abdomen: Pain Intensity: 2 Transfer of Care Handoff Completed per policy Notes Mental Status: alert / awake / arousable and participated in evaluation Patient Amnestic to Procedure: Yes Nausea / Vomiting: adequately controlled Pain: adequately controlled Airway Patency, RR, SpO2: stable & adequate BP & HR: stable & adequate Hydration State: stable & adequate Anesthetic Complications: no major complications apparent and Pt Satisfied with anesthetic care
[2023-06-26] MEDS ORDERED: GLUCOSE 10 TAB/TUBE PO PRN (20:16)
[2023-06-26] MEDS ORDERED: GLUCAGON FOR INJ 1 MG VIAL SQ PRN (20:16)
[2023-06-26] MEDS ORDERED: HYDROCODONE/ACETAMOPHEN 5/325MG TAB PO PRN (20:16)
[2023-06-26] MEDS ORDERED: CARBOHYDRATES FOR HYPOGLYCEMIA PO PRN (20:16)
[2023-06-26] MEDS ORDERED: DEXTROSE 50% 50 ML SYRINGE IV PRN (20:16)
[2023-06-26] MEDS ORDERED: HYDROmorphone INJ 0.5 MG/0.5 ML SYR IV PRN (20:16)
[2023-06-26] MEDS ORDERED: GLUCOSE 40% GEL 15 GM TUBE PO PRN (20:16)
[2023-06-26] MEDS ORDERED: SODIUM CHLORIDE 0.9% 1000ML 1,000 ML IV SCH (20:16)
[2023-06-26] MEDS ORDERED: PIPERACILLIN/TAZOBACTAM 4.5 GM in DEXTROSE 5% 100 ML IV ONE (21:00)
[2023-06-26] MEDS ORDERED: ROSUVASTATIN CALCIUM 20 MG TAB PO SCH (21:00)
[2023-06-26] MEDS: INSULIN ASPART PER UNIT CHARGE SC SCH (21:10)
[2023-06-26 21:35] LABS: Anion Gap 12 (3-11); BUN Creatinine Ratio 21.5 (10-20); Blood Urea Nitrogen 23 mg/dl (6-23); Calcium 9.2 mg/dl (8.6-10.3); Carbon Dioxide 27 mmol/L (21-32); Chloride 100 mmol/L (98-107); Est GFR (African American) 61.8 ml/min; Est GFR (Non-African American) 53.3 ml/min; Glucose 145 mg/dl (70-99(Fasting)); Potassium 3.4 mmol/L (3.5-5.1); Sodium 139 mmol/L (136-145)
[2023-06-26] MEDS: ACETAMINOPHEN 325 MG TAB PO PRN (22:16)
[2023-06-26] MEDS ORDERED: POTASSIUM CHLORIDE CRTAB 20 MEQ TABCR PO STA (23:45)
[2023-06-27] MEDS: PIPERACILLIN/TAZOBACTAM 4.5 GM in DEXTROSE 5% 100 ML IV SCH ×2 (02:08→11:03)
[2023-06-27] MEDS ORDERED: PANTOprazole 40 MG TAB PO SCH (06:30)
--- NOTE | 2023-06-27 07:09 | Surgery Progress Note ---
Date of Service June 27, 2023 Assessment & Plan (1) S/P laparoscopic appendectomy: Plan: Patient is awake and alert her abdomen Her abdomen is soft She would like to go home later today We will see how she does with her diet and continue her IV antibiotics Possible discharge later today Admission and Anticipated Discharge Date Admission Date: June 26, 2023 Results & Data Vital Signs (Past 12 Hours) Vital Signs Temp Pulse Pulse Resp BP Pulse Ox O2 Del Method 06/27/23 04:09 36.8 C 63 16 110/66 93 Nasal Cannula 06/26/23 23:28 36.7 C 69 16 131/75 94 Nasal Cannula 06/26/23 22:16 36.7 C 69 16 121/72 93 Nasal Cannula 06/26/23 19:45 Nasal Cannula 06/26/23 19:45 36.9 C 67 18 143/77 H 100 Nasal Cannula 06/26/23 20:15 36.5 C 60 16 124/75 98 Nasal Cannula 06/26/23 19:35 36.6 C 65 20 142/76 H 98 Nasal Cannula 06/26/23 19:25 69 19 124/77 96 Nasal Cannula 06/26/23 19:15 71 21 137/72 99 Oxymask O2 Flow Rate 06/27/23 04:09 2.0 06/26/23 23:28 2 06/26/23 22:16 2.0 06/26/23 19:45 2 06/26/23 19:45 2 06/26/23 20:15 2.0 06/26/23 19:35 2 06/26/23 19:25 2 06/26/23 19:15 10 PG Care Time/CCT Total # of Minutes Spent Total Time Spent with Patient: Total time spent is greater than 50% in coordination of care (as documented) at patient's floor/unit and/or counseling patient: Coding Level of Care Code 31249 Post Operative Follow-Up Diagnoses S/P laparoscopic appendectomy Z90.49
[2023-06-27 07:22] LABS: Basophils # (auto) 0.01 K/uL (0-0.2); Basophils % (auto) 0.1 %; Hemoglobin 14.1 g/dl (12.0-16.0); Immature Granulocytes # (auto) 0.05 K/uL (0.01-0.20); Immature Granulocytes % (auto) 0.5 %; Lymphocytes # (auto) 1.26 K/uL (1.2-3.4); Lymphocytes % (auto) 11.8 %; Mean Corpuscular Hgb Conc 36.2 g/dL (32.0-36.0); Mean Corpuscular Volume 88.6 fL (80.0-100.0); Mean Platelet Volume 10.3 fL (9.4-12.4); Monocytes # (auto) 0.34 K/uL (0.11-0.59); Monocytes % (auto) 3.2 %; Neutrophils # (auto) 8.99 K/uL (1.40-6.50); Neutrophils % (auto) 84.4 %; Platelet Count 257 K/uL (130-400); RDW Coefficient of Variation 11.9 % (11.5-14.5); RDW Standard Deviation 38.2 fL (36.4-46.3); White Blood Count 10.65 K/ul (4.8-10.8)
[2023-06-27 07:53] LABS: Albumin Globulin Ratio 1.1 (0.9-2); Albumin Level 3.8 gm/dl (3.4-5.0); BUN Creatinine Ratio 20.4 (10-20); Bilirubin,Total 2.6 mg/dl (0.2-1.0); Calcium 9.3 mg/dl (8.6-10.3); Creatinine Clr Calc Pharmacy 54.4 ml/min; Est GFR (African American) 73.2 ml/min; Est GFR (Non-African American) 63.1 ml/min; Globulin 3.6 gm/dl (2.5-4.0); Phosphorus 3.5 mg/dl (2.5-4.9); Potassium 3.3 mmol/L (3.5-5.1); Total Protein 7.4 gm/dl (6.0-8.3)
[2023-06-27] MEDS ORDERED: POTASSIUM CHLORIDE CRTAB 20 MEQ TABCR PO ONE (08:08)
[2023-06-27] MEDS: INSULIN ASPART PER UNIT CHARGE SC SCH ×2 (08:59→12:06)
[2023-06-27] MEDS ORDERED: amLODIPine BESYLATE 5 MG TAB PO SCH (09:00)
[2023-06-27] MEDS ORDERED: LOSARTAN POTASSIUM 50 MG TAB PO SCH (09:00)
[2023-06-27] MEDS ORDERED: HEPARIN SOD 5,000 UNIT/0.5 ML VIAL SQ SCH (09:00)
[2023-06-27 09:03] LABS: Estimated Average Glucose 128 mg/dl; Hemoglobin A1C 6.1 % (4.5-5.6)
[2023-06-27] MEDS: ACETAMINOPHEN 325 MG TAB PO PRN (11:04)
--- NOTE | 2023-06-27 17:06 | Hospitalist Progress Note ---
Date of Service June 27, 2023 Assessment & Plan (1) Acute appendicitis: Plan: This is a 67yo F with a PMH of DM II, HTN, GERD, h/o parathyroidectomy and other medical problems who presents with lower abdominal pain x 3 days and presented with acute appendicitis. RLQ pain, N/V/D x [address] abd/pelvis showing acute appendicitis with a 14mm dilatation and surrounded inflammation On presentation - afebrile, mild leukocytosis 11.58k POD#[address] Strong WBC 10.6K, remains afebrile On Zosyn Per primary service for wound care, VTE, diet, antibiotics Tentative discharge this afternoon by general surgery (2) Hypokalemia: Plan: Replaced, improved (3) HTN (hypertension): Plan: Normotensive BP. Continue amlodipine, losartan post-operatively. Indapamide held due to hypokalemia, can resume at discharge. (4) DM (diabetes mellitus), type 2: Plan: Hgb A1c 6.1 Received NovoLog per protocol while hospitalized, resume home regimen at discharge (5) HLD (hyperlipidemia): Plan: Continue statin (6) CKD (chronic kidney disease), stage III: Plan: Cr 0.9 (baseline ~1-1.1). Continue to monitor with daily BMP (7) GERD (gastroesophageal reflux disease): Plan: Continue PPI DVT PROPHYLAXIS SQ heparin as per general surgery Patient seen in collaboration with Dr. Wu. Thank you for this consultation. We will follow the patient with you during their hospital stay. You can reach a member of the [facility] 28/05 via the [facility] role in [place] [employer]. Admission and Anticipated Discharge Date Admission Date: June 26, 2023 Supervising Physician Co-Signing Physician Notes Patient is seen and examined at bedside. States having some abdominal discomfort at the site of surgery. Denies any nausea, vomiting, chest pain, dyspnea. On exam patient is obese, no apparent distress, normocephalic atraumatic, EOMI, decreased breath sounds, clear to auscultation, S1-S2, no murmur, no pedal edema, abdomen soft, mild generalized tender,+ surgical incisions, no guarding or rigidity, alert, awake, oriented, grossly no focal deficits. Patient is consulted for postop medical management after having appendectomy for acute appendicitis by Dr. Strong. Patient is doing well postoperatively. Continue IV antibiotics as per surgery. Replete potassium supplements for hypokalemia. Continue home medications for hypertension. Continue insulin while hospitalized for management of diabetes mellitus. Advised to follow-up with PCP, surgery upon discharge. I personally reviewed the record. Patient is interviewed and examined at bedside. Patient's care is coordinated with Padmaja Veliz ATHLETICS DIRECTOR. Please refer to the documentation above for details of patient's presentation and for discussion of other issues. Subjective Follow-up for medical management, s/p laparoscopic appendectomy. Patient seen and examined. Reports pain is well controlled. Some mild incisional tenderness present. No nausea. Denies chest pain and shortness of breath. Review of Systems Review of Systems: All systems reviewed & are unremarkable except as noted in Subjective Physical Exam Constitutional: WD/WN, vitals as above no acute distress Respiratory: normal respiratory effort, lungs clear to auscultation Cardiovascular: Rate/Rhythm: regular rate and regular rhythm Vessels: normal peripheral pulses Extremities: no edema Gastrointestinal (Abdomen): Percussion/Palpation: abdomen soft Laparoscopic incisions noted without surrounding erythema or drainage, mild renate-incisional tenderness present Skin: no rashes, warm and dry Neurologic: no focal motor deficits Psychiatric: A+Ox3, euthymic affect Results & Data Results & Data Vital Signs (Past 12 Hours) Vital Signs Temp Pulse Pulse Resp BP Pulse Ox O2 Del Method 06/27/23 13:00 36.4 C L 65 64 16 135/70 95 06/27/23 07:29 36.4 C L 64 16 135/70 95 Room Air Laboratory Results Short CBC 06/27/23 Range/Units 07:00 WBC 10.65 (4.8-10.8) K/ul Hgb 14.1 (12.0-16.0) g/dl Hct 39.0 (37.0-47.0) % Plt Count 257 (130-400) K/uL BMP 06/26/23 06/27/23 21:01 07:00 Sodium 139 137 Potassium 3.4 L 3.3 L Chloride 100 101 Carbon Dioxide 27 26 BUN 23 19 Creatinine 1.07 0.93 Glucose 145 H 146 H Calcium 9.2 9.3 Liver Function 06/27/23 Range/Units 07:00 Total Bilirubin 2.6 H (0.2-1.0) mg/dl AST 22 (13-39) U/L ALT 33 (7-52) U/L Alkaline Phosphatase 49 (34-104) U/L Albumin 3.8 (3.4-5.0) gm/dl (1) Acute appendicitis Acute appendicitis type: with localized peritonitis Appendicitis abscess presence: unspecified whether abscess present Appendicitis gangrene presence: unspecified whether gangrene present Appendicitis perforation presence: unspecified whether perforation present Qualified Code(s): K35.30 - Acute appendicitis with localized peritonitis, without perforation or gangrene
--- NOTE | 2023-06-27 17:38 | Electrocardiogram Report ---
Test Reason : Blood Pressure : / mmHG Vent. Rate : 076 BPM Atrial Rate : 076 BPM P-R Int : 184 ms QRS Dur : 086 ms QT Int : 388 ms P-R-T Axes : 065 -12 036 degrees QTc Int : 436 ms Normal sinus rhythm Cannot rule out Inferior infarct , age undetermined Cannot rule out Anterior infarct , age undetermined Abnormal ECG When compared with ECG of 02-JUL-2022 16:19, No significant change was found Confirmed by Ney Sarmiento ([id number]) on 06/27/2023 5:38:25 PM Referred By: Ector Strong Confirmed By:Ney Sarmiento
--- NOTE | 2023-07-02 11:26 | Discharge Summary ---
Date of Service July 02, 2023 Admission HPI Per Admitting Provider 67-year-old female with 2 to 3 days of abdominal pain now in the right lower quadrant Seen by her PCP as an outpatient and had a CT scan at [facility] CT scan showed acute appendicitis with a 14 mm appendix, surrounding inflammation but no fluid Patient with a history of hypertension and type 2 diabetes Admission Exam Per Admitting Provider GENERAL: Comfortable, obese, pleasant, no respiratory distress SKIN: Normal color, warm HEENT: Bespectacled, Tamora palpebral conjunctivae, no ptosis, dry buccal mucosa NECK : Supple, short neck, no tenderness CHEST : CTA, no tenderness HEART : RRR, no obvious murmurs ABDOMEN: Some distention, epigastric tenderness EXTREMITIES : Minimal LE swelling, no LE tenderness, no other conspicuous deformities noted NEUROLOGIC : Coherent, no facial asymmetry, no other gross focality Principal Diagnosis Acute appendicitis Status post laparoscopic appendectomy Discharge Exam General: Lying comfortably in bed, not in distress, on room air HEENT: EOMI, PERRL, MMM Chest: Clear breath sounds bilaterally, no wheezes or crackles CVS: Regular rate and rhythm, normal heart sounds, no murmur Abdomen: Soft, non tender, not distended, bowel sounds present Neuro: Awake, alert, oriented, conversing well, non focal Extremities: No edema Discharge Data Allergies Allergy/AdvReac Type Severity Reaction Status Date / Time lisinopril Allergy Mild VOMITING, Verified 06/26/23 17:24 COUGH oxycodone Allergy Mild VOMITING Verified 06/26/23 17:24 atorvastatin [From Lipitor] AdvReac Unknown leg cramps Verified 06/26/23 17:24 olmesartan [From Benicar] AdvReac Unknown Diarrhea Verified 06/26/23 17:24 Consultations 06/26/23 15:54 Consult General Surgery Stat 06/26/23 16:56 Consult Hospitalist Routine 06/26/23 20:16 Consult Hospitalist Routine Procedures Performed Operation Date: 06/26/23 14:30 Actual Procedures p Laparoscopic Appendectomy(Not Applicable) - Ector Strong MD, [facility] Hospital Course (1) S/P laparoscopic appendectomy: Patient presented to the emergency room with acute abdominal pain She was diagnosed with acute appendicitis She was taken that day to the operating room where she underwent laparoscopic appendectomy and then was kept overnight She progressed very well and was felt stable for discharge the next day to be followed in the surgical clinic within 1 to 2 weeks She was maintained on antibiotics Total Time Total Time Spent Total Time Spent (In Minutes): 20 Discharge Plan Discharge Items Patient Disposition: Home - Self-Care Reason For Visit: ACUTE APPENDICITIS Discharge Diagnosis: laparoscopic appendectomy Activity: Per Instructions section Activity Comment: light activity for 3-4 weeks Lifting: No more than 10 pounds Bathing Comment: may shower; no soaking in tubs/pools x 2 weeks Sexual Activity: When tolerated Exercise/Sports: Wait until after follow-up appointment Exercise Comment: wait 3-4 weeks Driving/Machine Use: no driving while taking narcotics for pain Non-emergency contact: Surgeon Call non-emergency contact if: you have any medication questions, your symptoms worsen, your pain is not controlled, you have a fever, your temperature is above 101.5, your wound has increased redness, your wound has increased drainage and your wound pain has increased Follow-up/Referrals: Ector Strong MD, FACS [Physician] - 08/09/23 9:15 am Nikki Hill MD [Outside Practitioners] - (Date & Time 06/29/2023 11:00 AM Provider Nikki Hill MD Department General Internal Medicine [facility] ) Diet: Regular Addtl Attending Provider Instructions: SPECIAL CARE INSTRUCTIONS: * Cover incisions and change daily for comfort/drainage. * May use ibuprofen for pain as tolerated. * Expect some swelling and bruising. Call your doctor if: * Temperature above 101 degrees * Pain not relieved by pain medicine ordered * There is increased drainage or redness from any incision * You have any unanswered questions or concerns [phone]. FOLLOW UP VISIT: If not already scheduled, please call the office for a follow-up visit. For 2 weeksno sutures to remove OFFICE PHONE NUMBER: Dr. Strong Office Pending Studies at Discharge: Yes Studies:: surgical pathology Stand-Alone Forms: My [employer], Smoking Cessation Medications and DC Order Prescriptions: New amoxicillin-pot clavulanate 875-125 mg tablet 1 tab PO BID Qty: 10 0RF Continued pantoprazole 40 mg tablet,delayed release (DR/EC) 40 mg PO DAILYBB rosuvastatin 20 mg tablet 20 mg PO HS indapamide 2.5 mg tablet 2.5 mg PO DAILY Ozempic 0.25 mg or 0.5 mg (2 mg/3 mL) pen injector 0.25 mg SUBCUT WK amlodipine [Norvasc] 5 mg tablet 2.5 mg PO DAILY losartan 100 mg tablet 100 mg PO DAILY Discharge Orders: Discharge Order (Routine); Ordered 06/27/23 Ordered By: Ector Smith/Other Patient Handouts: Appendectomy, What Is Appendicitis? Admission Data Admit Date/Time: 06/26/23 19:04 Attending Provider: Ector Strong Admit Provider: Ector Strong Primary Care Provider: Doroteo Hammond Other Providers: Irene Hess ; Clau Richard I. ; Cosme Azevedo ; Argelia Gonzalez ; Mary Jane Paulson ; Padmaja Veliz ; Beatriz Marks ; Tayo Stevens ; Senthil Kyle ; Ranadll Lee ; Rossy Yoon ; Gilbert Wu ; Amanda Fragoso ; Natalie Edmond ; Milvia Yarbrough ; Jeremiah Delgado ; Valerie Thorpe ; Kinjal Clark ; Kimberley Shukla ; Stephanie Byers I. ; Jeffrey Monterroso ; Loida Lazcano ; [place] ; Di Dudley ; Rsihabh Mckee ; Fahad Townsend ; Kristopher Lucia ; Prabhu Granado ; Gardenia Gong ; Dinesh Cannon ; Jennifer Hinton ; Cierra Bird ; Ector Strong Other Interventions: Discharge Summary Assessment (RN) Last Done: 06/27/23 13:00 Coding Level of Care Code 96023 IN/OBS DISCH 30 MIN/LESS Diagnoses S/P laparoscopic appendectomy Z90.49
== END 2023-06-27 13:19 | disposition home or self-care (01) | DRG 343 ==
LOC: ED 15:38 → OR 17:13 → 3W 19:04